=== PATIENT | male | born 1950 | race Hispanic/Latino ===

== ENCOUNTER 2019-01-05 13:30 | Emergency (ER) | payer OTHER ==
--- OUTSIDE RECORDS SUMMARY | 2019-01-05 13:33 | XMS REPORT | Clinical Summary ---
:1950 Author Organization [facility] Address [address] [place] [address] Care Team Providers Name Role Phone Lluvia Brown MD Primary Care Provider Allergies Active Allergy Reactions Severity Noted Date Comments Codeine Shortness Of Breath High 03/29/2015 Lisinopril 12/20/2015 Morphine Shortness Of Breath High 03/29/2015 Vorapaxar 12/20/2015 Medications Medication Sig Dispensed Refills Start Date End Date Status atorvastatin Take 80 mg by mouth 0 Active (LIPITOR) 80 MG daily At bedtime . tablet cholecalciferol, Take 50,000 Units by 0 Active vitamin D3, 50,000 mouth once a week unit Tab Every Saturday . prasugrel (EFFIENT) Take 1 tablet (10 mg 30 tablet 6 03/31/2015 Active 10 mg Tab tablet total) by mouth daily. ranolazine (RANEXA) Take 500 mg by mouth 0 Active 500 MG 12 hr tablet 2 (two) times daily. insulin glargine Inject 9 Units 0 Active (LANTUS) 100 subcutaneously 2 unit/mL injection (two) times daily Use as directed . insulin aspart Inject 50 Units 0 Active protamine-insulin subcutaneously every aspart (NOVOLOG MIX morning. 70/30) 100 unit/mL (70-30) injection isosorbide Take 60 mg by mouth 2 0 Active mononitrate (IMDUR) (two) times daily . 30 MG 24 hr tablet sitaGLIPtin Take 50 mg by mouth 2 0 Active (JANUVIA) 100 MG (two) times daily. tablet losartan (COZAAR) Take 25 mg by mouth 0 Active 25 MG tablet daily. gabapentin Take 600 mg by mouth 0 Active (NEURONTIN) 600 MG 3 (three) times tablet daily. Active Problems Problem Noted Date CAD (coronary artery disease) 06/03/2015 Chest pain 03/29/2015 Family History Medical History Relation Name Comments Stroke Father Cancer Mother Relation Name Status Comments Father Mother Social History Tobacco Use Types Packs/Day Years Used Date Former Smoker Smokeless Tobacco: Never Used Comments: 30 years ago Alcohol Use Drinks/Week oz/Week Comments Yes 1 Cans of beer 0.6 Once every three months Sex Assigned at Date Recorded Not on file Job Start Date Occupation Industry Not on file Not on file Not on file Travel History Travel Start Travel End No recent travel history available. Last Filed Vital Signs Not on file Plan of Treatment Not on file Results Not on fileafter 01/04/2018 Insurance Payer Benefit Plan / Group Subscriber ID Type Phone Address [facility] xxxxxxxxx Advance Directives For more information, please contact:[address] [phone] Code Status Date Activated Date Inactivated Comments Full Code 03/29/2015 10:13 PM 03/31/2015 4:17 PM This code status was determined by: Patient
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
--- OUTSIDE RECORDS SUMMARY | 2019-01-05 13:36 | XMS REPORT | Continuity of Care Document ---
:1950 Author Organization Interface Problems Problem Status Onset Classification Date Comments Source Date Reported LIBIDO, DECREASED Active 01/13/20 Condition 10/01/2014 [facility] MICROALBUMINURIA Active 07/11/20 Condition 10/01/2014 [facility] HYPERLIPIDEMIA Active 05/17/20 Condition 10/01/2014 [facility] ESSENTIAL Inactive 05/17/20 Condition 10/01/2014 HYPERTENSION, 10 Medical BENIGN Group UNSPECIFIED VITAMIN Active 05/17/20 Condition 10/01/2014 D DEFICIENCY 10 [facility] FATIGUE Active 05/17/20 Condition 10/01/2014 [facility] VITAMIN B12 Inactive 05/17/20 Condition 10/01/2014 [facility] DEFICIENCY 10 [facility] DIABETES - TYPE II Active Condition 10/01/2014 [facility] - UNCONTROLLED [facility] Group Medications Medication Details Route Status Patient Ordering Order Source Instructions Provider Date DIFLUCAN 150 MG Take 1 No Longer [facility] TABS tablet P.O. Active 014 [facility] JARDIANCE 10 MG Take 1 No Longer [facility] TABS tablet Active 014 Medical daily with Group breakfast. [place] [address] UN[place] CAPS capsule 014 Medical once weekly Group [place] Take [place] [address] UN[place] CAPS capsule x 3 014 Medical weeks out Group of the month VYTORIN 10-40 MG Take 1 Active [facility] TABS tablet 013 Medical daily. Group VITAMIN(D3) 4000 No Longer [facility] UNITS DAILY Active 013 Medical Group NOVOLOG MIX 70/30 56 -60 Active MH FLEXPEN 70-30 % units am 013 Medical SUSP before Group breakfast and 56 units pm before dinner VYTORIN 10-40 MG Take 1 Active [facility] TABS tablet 013 Medical daily. Group VYTORIN 10-40 MG Take 1 Active [facility] TABS tablet 013 Medical daily. Group FREESTYLE LANCETS uses 2 Active MH MISC daily 013 [facility] Group JANUMET 50-1000 Take 1 Active MH MG TABS tablet 013 Medical twice daily Group with breakfast and dinner BP MED Active 012 Medical Group ERGOCALCIFEROL Take 1 No Longer 65197 UNIT CAPS capsule Active 012 Medical once weekly Group x 3 weeks out of the month.90 DAY SUPPLY [place]OCALCIFER[place] Take 1 [place] [address] UNIT CAPS capsule Active 012 Medical once weekly Group x 3 weeks out of the month.90 DAY SUPPLY LISINOPRIL 2.5 MG take 1 No Longer [facility] TABS tablet Active 011 Medical daily Group LISINOPRIL 2.5 MG take 1 No Longer [facility] TABS tablet Active 011 Medical daily Group FREESTYLE LITE Tests 2 Active TEST STRP times daily 011 Medical Group ONETOUCH TEST tests 3 Inactive [facility] STRP times daily 011 [facility] Group ONETOUCH LANCETS tests 3 Inactive [facility] MISC times daily 011 [facility] Group BD PEN NEEDLE tAKES Active SHORT U/F 31G X 8 INSULIN 011 Medical MM MISC TWICE DAILY Group Allergies, Adverse Reactions, Alerts Substance Category Reaction Severity Reaction Status Date Comments Source type Reported PENICILLIN Drug PENICILLIN allergy 4 [facility] NARCOTIC? Drug NARCOTIC? allergy 4 [facility] Immunizations Immunization Date Given Site Status Last Updated Comments Source influenza 02/22/2013 completed Medical immunization (Flu Group Vax) has been administered influenza 08/04/2012 completed Medical immunization (Flu Group Vax) has been administered Results Order Name Results Value Reference Date Interpretation Comments Source Range Chemistry HGBA1C 9.9 % - 5.6 2014 [facility] Chemistry CHOLESTEROL 193 - 199 mg/dl 2014 [facility] Chemistry TRIGLYCERIDE 174 - 149 mg/dl 2014 [facility] Chemistry HDL 49 >=61 mg/dl 2014 [facility] Chemistry LDL 109 - 99 mg/dl 2014 [facility] Chemistry SODIUM 137 135 - 145 MEQ/L 2014 Medical mmol/L Group Chemistry POTASSIUM 4.0 3.5 - 5.1 MEQ/L 2014 Medical mmol/L Group Chemistry CREATININE 0.9 0.5 - 1.4 mg/dL 2014 [facility] Chemistry BUN 16 7 - 22 mg/dL 2014 [facility] Chemistry BUN/CREAT 18 6 - 25 2014 [facility] Chemistry ALBUMIN 3.8 3.5 - 5.0 g/dL 2014 [facility] Chemistry CALCIUM 8.6 8.5 - 10.5 mg/dL 2014 [facility] Chemistry SGPT (ALT) 34 U/L 0 - 65 2014 [facility] Chemistry SGOT (AST) 37 U/L 0 - 37 2014 [facility] Chemistry ALK PHOS 66 U/L 39 - 136 2014 [facility] Chemistry HGBA1C 9.6 % - 5.6 2013 [facility] Chemistry CHOLESTEROL 204 - 199 mg/dl 2013 [facility] Chemistry TRIGLYCERIDE 180 - 149 mg/dl 2013 [facility] Chemistry HDL 45 >=61 mg/dl 2013 [facility] Chemistry LDL 123 - 99 mg/dl 2013 [facility] Chemistry SODIUM 137 135 - 145 MEQ/L 2013 Medical mmol/L Group Chemistry POTASSIUM 4.8 3.5 - 5.1 MEQ/L 2013 Medical mmol/L Group Chemistry CREATININE 0.9 0.5 - 1.4 mg/dL 2013 [facility] Chemistry BUN 16 7 - 22 mg/dL 2013 [facility] Chemistry BUN/CREAT 18 6 - 25 2013 [facility] Chemistry ALBUMIN 4.0 3.5 - 5.0 g/dL 2013 [facility] Chemistry CALCIUM 9.2 8.5 - 10.5 mg/dL 2013 [facility] Chemistry SGPT (ALT) 35 U/L 0 - 65 2013 [facility] Chemistry SGOT (AST) 33 U/L 0 - 37 2013 [facility] Chemistry ALK PHOS 74 U/L 39 - 136 2013 [facility] Chemistry HGBA1C 9.8 % - 5.6 2013 [facility] Chemistry CHOLESTEROL 230 - 199 mg/dl 2013 [facility] Chemistry TRIGLYCERIDE 216 - 149 mg/dl 2013 [facility] Chemistry HDL 51 >=61 mg/dl 2013 [facility] Chemistry LDL 136 - 99 mg/dl 2013 [facility] Chemistry SODIUM 137 135 - 145 MEQ/L 2013 Medical mmol/L Group Chemistry POTASSIUM 4.4 3.5 - 5.1 MEQ/L 2013 Medical mmol/L Group Chemistry CREATININE 1.0 0.5 - 1.4 mg/dL 2013 [facility] Chemistry BUN 24 7 - 22 mg/dL 2013 [facility] Chemistry BUN/CREAT 24 6 - 25 2013 [facility] Chemistry ALBUMIN 4.6 3.5 - 5.0 g/dL 2013 [facility] Chemistry CALCIUM 10.1 8.5 - 10.5 mg/dL 2013 [facility] Chemistry SGPT (ALT) 32 U/L 0 - 65 2013 [facility] Chemistry SGOT (AST) 33 U/L 0 - 37 2013 [facility] Chemistry ALK PHOS 93 U/L 39 - 136 2013 [facility] Chemistry FSH 38517 miu/l 2013 [facility] Chemistry LH 5.74 mIU/mL 2013 [facility] Chemistry TSH 1.390 0.360 - uIU/mL 3.740 2013 [facility] Chemistry TESTO, TOTAL 625 250 - 1100 ng/dL 2013 [facility] Chemistry TESTO, FREE 73.8 35.0 - pg/mL 155.0 2013 [facility] Hematology HGB 16.2 14.0 - 18.0 g/dL 2013 [facility] Hematology HCT 47.8 % 42.0 - 54.0 2013 [facility] Hematology PLATELETS 173 133 - 450 K/CMM 2013 Medical /mm3 Group Chemistry HGBA1C 9.3 % - 5.6 2013 [facility] Chemistry CHOLESTEROL 210 - 199 mg/dl 2013 [facility] Chemistry TRIGLYCERIDE 142 - 149 mg/dl 2013 [facility] Chemistry HDL 46 >=61 mg/dl 2013 [facility] Chemistry LDL 136 - 99 mg/dl 2013 [facility] Chemistry SODIUM 139 135 - 145 MEQ/L 2013 Medical mmol/L Group Chemistry POTASSIUM 4.3 3.5 - 5.1 MEQ/L 2013 Medical mmol/L Group Chemistry CREATININE 0.9 0.5 - 1.4 mg/dL 2013 [facility] Chemistry BUN 17 7 - 22 mg/dL 2013 [facility] Chemistry BUN/CREAT 19 6 - 25 2013 [facility] Chemistry ALBUMIN 4.2 3.5 - 5.0 g/dL 2013 [facility] Chemistry CALCIUM 9.2 8.5 - 10.5 mg/dL 2013 [facility] Chemistry SGPT (ALT) 36 U/L 0 - 65 2013 [facility] Chemistry SGOT (AST) 33 U/L 0 - 37 2013 [facility] Chemistry ALK PHOS 74 U/L 39 - 136 2013 [facility] Chemistry HGBA1C 7.9 % - 5.6 2012 [facility] Chemistry CHOLESTEROL 181 - 199 mg/dl 2012 [facility] Chemistry TRIGLYCERIDE 133 - 149 mg/dl 2012 [facility] Chemistry HDL 43 >=61 mg/dl 2012 [facility] Chemistry LDL 111 - 99 mg/dl 2012 [facility] Chemistry SODIUM 142 135 - 145 MEQ/L 2012 Medical mmol/L Group Chemistry POTASSIUM 4.2 3.5 - 5.1 MEQ/L 2012 Medical mmol/L Group Chemistry CREATININE 0.9 0.5 - 1.4 mg/dL 2012 [facility] Chemistry BUN 13 7 - 22 mg/dL 2012 [facility] Chemistry BUN/CREAT 14 6 - 25 2012 [facility] Chemistry ALBUMIN 4.2 3.5 - 5.0 g/dL 2012 [facility] Chemistry CALCIUM 9.2 8.5 - 10.5 mg/dL 2012 [facility] Chemistry SGPT (ALT) 38 U/L 0 - 65 2012 [facility] Chemistry SGOT (AST) 38 U/L 0 - 37 2012 [facility] Chemistry ALK PHOS 79 U/L 39 - 136 2012 [facility] Chemistry HGBA1C 8.0 % - 5.6 2012 [facility] Chemistry CHOLESTEROL 187 - 199 mg/dl 2012 [facility] Chemistry TRIGLYCERIDE 168 - 149 mg/dl 2012 [facility] Chemistry HDL 44 >=61 mg/dl 2012 [facility] Chemistry LDL 109 - 99 mg/dl 2012 [facility] Chemistry SODIUM 139 135 - 145 MEQ/L 2012 Medical mmol/L Group Chemistry POTASSIUM 4.1 3.5 - 5.1 MEQ/L 2012 Medical mmol/L Group Chemistry CREATININE 0.9 0.5 - 1.4 mg/dL 2012 [facility] Chemistry BUN 11 7 - 22 mg/dL 2012 [facility] Chemistry BUN/CREAT 12 6 - 25 2012 [facility] Chemistry ALBUMIN 4.1 3.5 - 5.0 g/dL 2012 [facility] Chemistry CALCIUM 9.3 8.5 - 10.5 mg/dL 2012 [facility] Chemistry SGPT (ALT) 38 U/L 0 - 65 2012 [facility] Chemistry SGOT (AST) 38 U/L 0 - 37 2012 [facility] Chemistry ALK PHOS 66 U/L 39 - 136 2012 [facility] Chemistry TSH 1.010 0.360 - uIU/mL 3.740 2012 [facility] Chemistry HGBA1C 8.9 % 2012 [facility] Chemistry CHOLESTEROL 176 120 - 200 mg/dl 2012 [facility] Chemistry TRIGLYCERIDE 157 0 - 200 mg/dl 2012 [facility] Chemistry HDL 41 >=35 mg/dl 2012 [facility] Chemistry LDL 104 0 - 129 mg/dl 2012 [facility] Chemistry SODIUM 136 135 - 145 MEQ/L 2012 Medical mmol/L Group Chemistry POTASSIUM 4.3 3.5 - 5.1 MEQ/L 2012 Medical mmol/L Group Chemistry CREATININE 0.8 0.5 - 1.4 mg/dL 2012 [facility] Chemistry BUN 15 7 - 22 mg/dL 2012 [facility] Chemistry BUN/CREAT 19 6 - 25 2012 [facility] Chemistry ALBUMIN 4.1 3.5 - 5.0 g/dL 2012 [facility] Chemistry CALCIUM 8.8 8.5 - 10.5 mg/dL 2012 [facility] Chemistry SGPT (ALT) 35 U/L 0 - 65 2012 [facility] Chemistry SGOT (AST) 32 U/L 0 - 37 2012 [facility] Chemistry ALK PHOS 77 U/L 39 - 136 2012 [facility] Chemistry TSH 1.490 0.360 - uIU/mL 3.740 2012 [facility] Chemistry HGBA1C 8.9 % 2011 [facility] Chemistry CHOLESTEROL 176 120 - 200 mg/dl 2011 [facility] Chemistry TRIGLYCERIDE 143 0 - 200 mg/dl 2011 [facility] Chemistry HDL 44 >=35 mg/dl 2011 [facility] Chemistry LDL 103 0 - 129 mg/dl 2011 [facility] Chemistry SODIUM 134 135 - 145 MEQ/L 2011 Medical mmol/L Group Chemistry POTASSIUM 4.2 3.5 - 5.1 MEQ/L 2011 Medical mmol/L Group Chemistry CREATININE 0.8 0.5 - 1.4 mg/dL 2011 [facility] Chemistry BUN 15 7 - 22 mg/dL 2011 [facility] Chemistry BUN/CREAT 19 6 - 25 2011 [facility] Chemistry ALBUMIN 4.3 3.5 - 5.0 g/dL 2011 [facility] Chemistry CALCIUM 8.9 8.5 - 10.5 mg/dL 2011 [facility] Chemistry SGPT (ALT) 39 U/L 0 - 65 2011 [facility] Chemistry SGOT (AST) 42 U/L 0 - 37 2011 [facility] Chemistry ALK PHOS 69 U/L 39 - 136 2011 [facility] Chemistry HGBA1C 8.1 % 2011 [facility] Chemistry CHOLESTEROL 180 120 - 200 mg/dl 2011 [facility] Chemistry TRIGLYCERIDE 126 0 - 200 mg/dl 2011 [facility] Chemistry HDL 49 >=35 mg/dl 2011 [facility] Chemistry LDL 106 0 - 129 mg/dl 2011 [facility] Chemistry SODIUM 138 135 - 145 MEQ/L 2011 Medical mmol/L Group Chemistry POTASSIUM 4.3 3.5 - 5.1 MEQ/L 2011 Medical mmol/L Group Chemistry BUN 12 7 - 22 mg/dL 2011 [facility] Chemistry CREATININE 0.9 0.5 - 1.4 mg/dL 2011 [facility] Chemistry BUN/CREAT 13 6 - 25 2011 [facility] Chemistry ALBUMIN 4.0 3.5 - 5.0 g/dL 2011 [facility] Chemistry CALCIUM 9.2 8.5 - 10.5 mg/dL 2011 [facility] Chemistry SGOT (AST) 35 U/L 0 - 37 2011 [facility] Chemistry SGPT (ALT) 37 U/L 0 - 65 2011 [facility] Chemistry ALK PHOS 69 U/L 39 - 136 2011 [facility] Hematology HGB 14.9 12.0 - 16.0 g/dL 2011 [facility] Hematology HCT 43.5 % 36.0 - 48.0 2011 [facility] Hematology PLATELETS 151 133 - 450 K/CMM 2011 Medical /mm3 Group Chemistry HGBA1C 7.6 % 2011 [facility] Chemistry CHOLESTEROL 186 120 - 200 mg/dl 2011 [facility] Chemistry TRIGLYCERIDE 127 0 - 200 mg/dl 2011 [facility] Chemistry HDL 46 >=35 mg/dl 2011 [facility] Chemistry LDL 115 0 - 129 mg/dl 2011 [facility] Chemistry SODIUM 140 135 - 145 MEQ/L 2011 Medical mmol/L Group Chemistry POTASSIUM 3.9 3.5 - 5.1 MEQ/L 2011 Medical mmol/L Group Chemistry BUN 11 7 - 22 mg/dL 2011 [facility] Chemistry CREATININE 0.7 0.5 - 1.4 mg/dL 2011 [facility] Chemistry BUN/CREAT 16 6 - 25 2011 [facility] Chemistry ALBUMIN 4.0 3.5 - 5.0 g/dL 2011 [facility] Chemistry CALCIUM 9.1 8.5 - 10.5 mg/dL 2011 [facility] Chemistry SGOT (AST) 37 U/L 0 - 37 2011 [facility] Chemistry SGPT (ALT) 29 U/L 0 - 65 2011 [facility] Chemistry ALK PHOS 65 U/L 39 - 136 2011 [facility] Hematology HGB 14.2 12.0 - 16.0 g/dL 2011 [facility] Hematology HCT 42.4 % 36.0 - 48.0 2011 [facility] Hematology PLATELETS 176 133 - 450 K/CMM 2011 Medical /mm3 Group Chemistry CHOLESTEROL 182 120 - 200 mg/dl 2010 [facility] Chemistry TRIGLYCERIDE 103 0 - 200 mg/dl 2010 [facility] Chemistry HDL 47 >=35 mg/dl 2010 [facility] Chemistry LDL 114 0 - 129 mg/dl 2010 [facility] Chemistry SODIUM 140 135 - 145 MEQ/L 2010 Medical mmol/L Group Chemistry POTASSIUM 4.4 3.5 - 5.1 MEQ/L 2010 Medical mmol/L Group Chemistry BUN 11 7 - 22 mg/dL 2010 [facility] Chemistry CREATININE 0.8 0.5 - 1.4 mg/dL 2010 [facility] Chemistry BUN/CREAT 14 6 - 25 2010 [facility] Chemistry ALBUMIN 3.9 3.5 - 5.0 g/dL 2010 [facility] Chemistry CALCIUM 9.4 8.5 - 10.5 mg/dL 2010 [facility] Chemistry SGOT (AST) 27 U/L 0 - 37 2010 [facility] Chemistry SGPT (ALT) 24 U/L 0 - 65 2010 [facility] Chemistry ALK PHOS 79 U/L 39 - 136 2010 [facility] Chemistry HGBA1C 7.8 % 2010 [facility] Chemistry CHOLESTEROL 182 120 - 200 mg/dl 2010 [facility] Chemistry TRIGLYCERIDE 103 0 - 200 mg/dl 2010 [facility] Chemistry HDL 47 >=35 mg/dl 2010 [facility] Chemistry LDL 114 0 - 129 mg/dl 2010 [facility] Chemistry SODIUM 140 135 - 145 MEQ/L 2010 Medical mmol/L Group Chemistry POTASSIUM 4.4 3.5 - 5.1 MEQ/L 2010 Medical mmol/L Group Chemistry BUN 11 7 - 22 mg/dL 2010 [facility] Chemistry CREATININE 0.8 0.5 - 1.4 mg/dL 2010 [facility] Chemistry BUN/CREAT 14 6 - 25 2010 [facility] Chemistry ALBUMIN 3.9 3.5 - 5.0 g/dL 2010 [facility] Chemistry CALCIUM 9.4 8.5 - 10.5 mg/dL 2010 [facility] Chemistry SGOT (AST) 27 U/L 0 - 37 2010 [facility] Chemistry SGPT (ALT) 24 U/L 0 - 65 2010 [facility] Chemistry ALK PHOS 79 U/L 39 - 136 2010 [facility] Chemistry HGBA1C 12.5 % 2009 [facility] Chemistry CHOLESTEROL 218 120 - 200 mg/dl 2009 [facility] Chemistry TRIGLYCERIDE 140 0 - 200 mg/dl 2009 [facility] Chemistry HDL 53 >=35 mg/dl 2009 [facility] Chemistry LDL 137 0 - 129 mg/dl 2009 [facility] Chemistry T4, FREE 1.06 0.76 - 1.46 ng/dl 2009 [facility] Chemistry TSH 0.746 0.360 - uIU/mL 3.740 2009 [facility] Chemistry SODIUM 136 135 - 145 mmol/L 2009 [facility] Chemistry POTASSIUM 4.1 3.5 - 5.1 mmol/L 2009 [facility] Chemistry BUN 10 7 - 22 mg/dL 2009 [facility] Chemistry CREATININE 0.8 0.5 - 1.4 mg/dL 2009 [facility] Chemistry BUN/CREAT 13 6 - 25 2009 [facility] Chemistry ALBUMIN 3.9 3.5 - 5.0 g/dL 2009 [facility] Chemistry CALCIUM 8.5 8.5 - 10.5 mg/dL 2009 [facility] Chemistry SGOT (AST) 24 U/L 0 - 37 2009 [facility] Chemistry SGPT (ALT) 27 U/L 0 - 65 2009 [facility] Chemistry ALK PHOS 80 U/L 39 - 136 2009 [facility] Hematology HGB 15.1 12.0 - 16.0 g/dL 2009 [facility] Hematology HCT 44.3 % 36.0 - 48.0 2009 [facility] Hematology PLATELETS 161 133 - 450 K/CMM 2009 Medical /mm3 Group Urinalysis UA COLOR STRAW 2009 [facility] Group Urinalysis BACTERIA URN None NoneSeen Seen 2009 [facility] Group Vital Signs Vital Sign Value Date Comments Source Height 68 10/01/2014 [facility] Weight 195 10/01/2014 [facility] Heart Rate 64 10/01/2014 [facility] Systolic (mm Hg) 120 10/01/2014 [facility] Group Diastolic (mm Hg) 70 10/01/2014 [facility] Group Height 68 06/16/2014 [facility] Weight 197 06/16/2014 [facility] Heart Rate 64 06/16/2014 [facility] Systolic (mm Hg) 130 06/16/2014 [facility] Group Diastolic (mm Hg) 70 06/16/2014 [facility] Weight 198 03/05/2014 [facility] Heart Rate 68 03/05/2014 [facility] Systolic (mm Hg) 118 03/05/2014 [facility] Diastolic (mm Hg) 80 03/05/2014 [facility] Weight 195 10/30/2013 [facility] Group Heart Rate 84 10/30/2013 [facility] Systolic (mm Hg) 102 10/30/2013 [facility] Diastolic (mm Hg) 60 10/30/2013 [facility] Weight 193 07/08/2013 [facility] Heart Rate 80 07/08/2013 [facility] Systolic (mm Hg) 110 07/08/2013 [facility] Diastolic (mm Hg) 60 07/08/2013 [facility] Weight 190 02/25/2013 [facility] Heart Rate 62 02/25/2013 [facility] Systolic (mm Hg) 118 02/25/2013 [facility] Group Diastolic (mm Hg) 64 02/25/2013 [facility] Weight 195 11/12/2012 [facility] Systolic (mm Hg) 134 11/12/2012 [facility] Diastolic (mm Hg) 74 11/12/2012 [facility] Group Heart Rate 70 11/12/2012 [facility] Weight 196 08/04/2012 [facility] Systolic (mm Hg) 138 08/04/2012 [facility] Diastolic (mm Hg) 73 08/04/2012 [facility] Heart Rate 77 08/04/2012 [facility] Weight 196 04/01/2012 [facility] Heart Rate 81 04/01/2012 [facility] Systolic (mm Hg) 126 04/01/2012 [facility] Diastolic (mm Hg) 74 04/01/2012 [facility] Weight 192 10/31/2011 [facility] Heart Rate 78 10/31/2011 [facility] Systolic (mm Hg) 114 10/31/2011 [facility] Group Diastolic (mm Hg) 62 10/31/2011 [facility] Weight 191 07/11/2011 [facility] Heart Rate 90 07/11/2011 [facility] Systolic (mm Hg) 104 07/11/2011 [facility] Group Diastolic (mm Hg) 70 07/11/2011 [facility] Group Height 68 02/01/2011 [facility] Weight 189 02/01/2011 [facility] Group Heart Rate 81 02/01/2011 [facility] Systolic (mm Hg) 120 02/01/2011 [facility] Diastolic (mm Hg) 61 02/01/2011 [facility] Group Height 68 12/11/2010 [facility] Group Weight 180 12/11/2010 [facility] Group Heart Rate 93 12/11/2010 [facility] Group Systolic (mm Hg) 131 12/11/2010 [facility] Group Diastolic (mm Hg) 83 12/11/2010 [facility] Group Height 68 06/01/2010 [facility] Weight 181 06/01/2010 [facility] Group Heart Rate 81 06/01/2010 [facility] Group Systolic (mm Hg) 122 06/01/2010 [facility] Group Diastolic (mm Hg) 82 06/01/2010 [facility] Weight 181 05/17/2010 [facility] Group Height 68 05/17/2010 [facility] Group Systolic (mm Hg) 100 05/17/2010 [facility] Group Diastolic (mm Hg) 58 05/17/2010 [facility] Group Heart Rate 65 05/17/2010 [facility] Group Encounters Location Location Encounter Encounter Reason Attending ADM DC Status Source Details Type Number For Provider Date Date Visit [facility] [id number] Tabatha 03/05 03/05 [facility] Visit 60 MD Flo /2013 [facility] [address] Lab Report [id number] Tabatha 06/11 06/11 Yemi 90 MD Flo /2013 [facility] [address] Office [id number] Tabatha 06/16 06/16 [facility] Visit 00 MD Flo /2013 [facility] [address] Office [id number] Tabatha 10/01 10[facility]2014 [facility] [place] [id number] Procedures Procedure Code Date Perfomer Comments Source diabetic foot [id number] 10/01/2014 yes Medical check Group diabetic foot [id number] 07/08/2013 yes [facility] check Group diabetic foot [id number] 05/17/2010 yes Medical check Group diabetic eye exam 66427.1 10/24/2009 normal Medical Group
--- OUTSIDE RECORDS SUMMARY | 2019-01-05 13:36 | XMS REPORT | Continuity of Care Document ---
:1950 Author Organization [facility] Care Team Providers Name Role Phone MD Flo, Tabatha Unavailable Unavailable Insurance Providers Payer name Policy type / Policy ID Covered libertarian ID Policy Quach Coverage type [facility] (INDEMNITY) [facility] (IN[facility]MNITY CIG (INDEMNITY) Encounters Encounter Performer Location Date Office Visit Tabatha Rossi MD [facility] The Mar 05, 2014 [place] [address] Problems Problem Effective Dates Problem Status DIABETES - TYPE II - UNCONTROLLED Active HYPERLIPIDEMIA May 17, 2010 Active ESSENTIAL HYPERTENSION, BENIGN May 17, 2010 Inactive UNSPECIFIED VITAMIN D DEFICIENCY May 17, 2010 Active FATIGUE May 17, 2010 Active VITAMIN B12 DEFICIENCY May 17, 2010 Inactive 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, 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 ESSENTIAL HYPERTENSION, BENIGN Apr 01, 2012 Active LIBIDO, DECREASED January 12, 2014 Active Procedures Date Description Comments Oct 24, 2009 diabetic eye exam normal May 17, 2010 smoking status never May 17, 2010 diabetic foot check yes Nov 12, 2012 smoking status never smoker Jul 08, 2013 diabetic foot check yes Mar 05, 2014 smoking status Never smoker Medications Medication Instructions Start Date Status BD PEN NEEDLE SHORT U/F 31G X 8 tAKES INSULIN TWICE DAILY Dec 11, 2010 Active MM MISC FREESTYLE LITE TEST STRP Tests 2 times daily Feb 01, 2011 Active ONETOUCH TEST STRP tests 3 times daily Feb 01, 2011 Inactive ONETOUCH LANCETS MISC tests 3 times daily Feb 01, 2011 Inactive LISINOPRIL 2.5 MG TABS take 1 tablet daily Jul 11, 2011 Inactive BP MED Apr 01, 2012 Active FREESTYLE LANCETS MISC uses 2 daily Nov 28, 2012 Active VYTORIN 10-40 MG TABS Take 1 tablet daily. Feb 25, 2013 Active ERGOCALCIFEROL 83245 UNIT CAPS Take 1 capsule once weekly x 3 Oct 31, 2011 Inactive weeks out of the month.90 DAY SUPPLY NOVOLOG MIX 70/30 FLEXPEN 70-30 % 56 units am before breakfast Feb 25, 2013 Active SUSP and 52 units pm before dinner VITAMIN(D3) 4000 UNITS DAILY Feb 25, 2013 Inactive ERGOCALCIFEROL 23871 UNIT CAPS Take 1 capsule x 3 weeks out Nov 01, 2013 Active of the month JANUMET 50-1000 MG TABS Take 1 tablet twice daily Nov 12, 2012 Active with breakfast and dinner Immunizations Vaccine Date Status influenza immunization (Flu Vax) has been administered Feb 22, 2013 completed influenza immunization (Flu Vax) has been administered Aug 04, 2012 completed Vital Signs Date Description Test Result May 17, 2010 weight E&M WEIGHT 181 lb May 17, 2010 height E&M HEIGHT 68 in May 17, 2010 blood pressure, systolic BP SYSTOLIC 100 mm Hg May 17, 2010 blood pressure, diastolic BP DIASTOLIC 58 mm Hg May 17, 2010 pulse rate E&M PULSE RATE 65 /min Jun 01, 2010 height E&M HEIGHT 68 in Jun 01, 2010 weight E&M WEIGHT 181 lb Jun 01, 2010 pulse rate E&M PULSE RATE 81 /min Jun 01, 2010 blood pressure, systolic BP SYSTOLIC 122 mm Hg Jun 01, 2010 blood pressure, diastolic BP DIASTOLIC 82 mm Hg Dec 11, 2010 height E&M HEIGHT 68 in Dec 11, 2010 weight E&M WEIGHT 180 lb Dec 11, 2010 pulse rate E&M PULSE RATE 93 /min Dec 11, 2010 blood pressure, systolic BP SYSTOLIC 131 mm Hg Dec 11, 2010 blood pressure, diastolic BP DIASTOLIC 83 mm Hg Feb 01, 2011 height E&M HEIGHT 68 in Feb 01, 2011 weight E&M WEIGHT 189 lb Feb 01, 2011 pulse rate E&M PULSE RATE 81 /min Feb 01, 2011 blood pressure, systolic BP SYSTOLIC 120 mm Hg Feb 01, 2011 blood pressure, diastolic BP DIASTOLIC 61 mm Hg Jul 11, 2011 weight E&M WEIGHT 191 lb Jul 11, 2011 pulse rate E&M PULSE RATE 90 /min Jul 11, 2011 blood pressure, systolic BP SYSTOLIC 104 mm Hg Jul 11, 2011 blood pressure, diastolic BP DIASTOLIC 70 mm Hg Oct 31, 2011 weight E&M WEIGHT 192 lb Oct 31, 2011 pulse rate E&M PULSE RATE 78 /min Oct 31, 2011 blood pressure, systolic BP SYSTOLIC 114 mm Hg Oct 31, 2011 blood pressure, diastolic BP DIASTOLIC 62 mm Hg Apr 01, 2012 weight E&M WEIGHT 196 lb Apr 01, 2012 pulse rate E&M PULSE RATE 81 /min Apr 01, 2012 blood pressure, systolic BP SYSTOLIC 126 mm Hg Apr 01, 2012 blood pressure, diastolic BP DIASTOLIC 74 mm Hg Aug 04, 2012 weight E&M WEIGHT 196 lb Aug 04, 2012 blood pressure, systolic BP SYSTOLIC 138 mm Hg Aug 04, 2012 blood pressure, diastolic BP DIASTOLIC 73 mm Hg Aug 04, 2012 pulse rate E&M PULSE RATE 77 /min Nov 12, 2012 weight E&M WEIGHT 195 lb Nov 12, 2012 blood pressure, systolic BP SYSTOLIC 134 mm Hg Nov 12, 2012 blood pressure, diastolic BP DIASTOLIC 74 mm Hg Nov 12, 2012 pulse rate E&M PULSE RATE 70 /min Feb 25, 2013 weight E&M WEIGHT 190 lb Feb 25, 2013 pulse rate E&M PULSE RATE 62 /min Feb 25, 2013 blood pressure, systolic BP SYSTOLIC 118 mm Hg Feb 25, 2013 blood pressure, diastolic BP DIASTOLIC 64 mm Hg Jul 08, 2013 weight E&M WEIGHT 193 lb Jul 08, 2013 pulse rate E&M PULSE RATE 80 /min Jul 08, 2013 blood pressure, systolic BP SYSTOLIC 110 mm Hg Jul 08, 2013 blood pressure, diastolic BP DIASTOLIC 60 mm Hg Oct 30, 2013 weight E&M WEIGHT 195 lb Oct 30, 2013 pulse rate E&M PULSE RATE 84 /min Oct 30, 2013 blood pressure, systolic BP SYSTOLIC 102 mm Hg Oct 30, 2013 blood pressure, diastolic BP DIASTOLIC 60 mm Hg Mar 05, 2014 weight E&M WEIGHT 198 lb Mar 05, 2014 pulse rate E&M PULSE RATE 68 /min Mar 05, 2014 blood pressure, systolic BP SYSTOLIC 118 mm Hg Mar 05, 2014 blood pressure, diastolic BP DIASTOLIC 80 mm Hg Results Date Description Test Name Value Reference Interpretation Status May 17, hemoglobin, blood HGB 15.1 g/dL 12.0-16.0 2009May 17, hematocrit, blood HCT 44.3 % 36.0-48.0 2009May 17, platelet count PLATELETS 161 K/CMM 321-135 1965 /mm3 Oct 19, hemoglobin, blood HGB 14.2 g/dL 12.0-16.0 2011Oct 19, hematocrit, blood HCT 42.4 % 36.0-48.0 2011Oct 19, platelet count PLATELETS 176 K/CMM 295-478 3126 /mm3 Feb 04, hemoglobin, blood HGB 14.9 g/dL 12.0-16.0 2011Feb 04, hematocrit, blood HCT 43.5 % 36.0-48.0 2011Feb 04, platelet count PLATELETS 151 K/CMM 538-357 0761 /mm3 Feb 22, hemoglobin, blood HGB 16.2 g/dL 14.0-18.0 2013Feb 22, hematocrit, blood HCT 47.8 % 42.0-54.0 2013Feb 22, platelet count PLATELETS 173 K/CMM 795-436 9923 /mm3 May 17, urine color UA COLOR STRAW - 2009 null May 17, bacteria, urine BACTERIA URN None Seen NoneSeen- 2009 microscopy null May 24, cholesterol, serum CHOLESTEROL 182 mg/dl [phone] May 24, triglyceride, serum, TRIGLYCERIDE 103 mg/dl 0-200 2010 fasting May 24, HDL cholesterol, HDL 47 mg/dl >=35- 2010 serum Sep , LDL cholesterol, LDL 114 mg/dl 0-129 2010 serum May 24, sodium, serum SODIUM 140 MEQ/L [phone] mmol/L May 24, potassium, serum POTASSIUM 4.4 MEQ/L 3.5-5.1 2010 mmol/L May 24, urea nitrogen, blood BUN 11 mg/dL 7-22 2010May 24, creatinine, serum CREATININE 0.8 mg/dL 0.5-1.4 2010May 24, urea BUN/CREAT 14 null 6-25 2010 nitrogen/creatinine ratio, serum May 24, albumin, serum ALBUMIN 3.9 g/dL 3.5-5.0 2010May 24, calcium, serum CALCIUM 9.4 mg/dL 8.5-10.5 2010May 24, aspartate SGOT (AST) 27 U/L 0-37 2010 aminotransferase (SGOT), serum May 24, alanine SGPT (ALT) 24 U/L 0-65 2010 aminotransferase (SGPT), serum May 24, alkaline ALK PHOS 79 U/L 39-136 2010 phosphatase, serum May 17, hemoglobin A1C, HGBA1C 12.5 % - 2010 blood, as % of total hemoglobin May 17, cholesterol, serum CHOLESTEROL 218 mg/dl 120-200 High 2009May 17, triglyceride, serum, TRIGLYCERIDE 140 mg/dl 0-200 2009 fasting May 17, HDL cholesterol, HDL 53 mg/dl >=35- 2009 serum Sep 22, LDL cholesterol, LDL 137 mg/dl 0-129 High 2009 serum May 17, thyroxine, serum, T4, FREE 1.06 0.76-1.46 2010 free ng/dl May 17, thyroid stimulating TSH 0.746 0.360-3.740 2010 hormone, serum uIU/mL May 17, sodium, serum SODIUM [phone] mmol/L May 17, potassium, serum POTASSIUM 4.1 3.5-5.1 2009 mmol/L May 17, urea nitrogen, blood BUN 10 mg/dL 7-2009May 17, creatinine, serum CREATININE 0.8 mg/dL 0.5-1.4 2009May 17, urea BUN/CREAT 13 null 6-25 2009 nitrogen/creatinine ratio, serum May 17, albumin, serum ALBUMIN 3.9 g/dL 3.5-5.0 2009May 17, calcium, serum CALCIUM 8.5 mg/dL 8.5-10.5 2009May 17, aspartate SGOT (AST) 24 U/L 0-37 2009 aminotransferase (SGOT), serum May 17, alanine SGPT (ALT) 27 U/L 0-65 2009 aminotransferase (SGPT), serum May 17, alkaline ALK PHOS 80 U/L 39-136 2009 phosphatase, serum May 24, hemoglobin A1C, HGBA1C 7.8 % - 2010 blood, as % of total hemoglobin May 24, cholesterol, serum CHOLESTEROL 182 mg/dl [phone] May 24, triglyceride, serum, TRIGLYCERIDE 103 mg/dl 0-200 2010 fasting May 24, HDL cholesterol, HDL 47 mg/dl >=35- 2010 serum May 24, LDL cholesterol, LDL 114 mg/dl 0-129 2010 serum Sep , sodium, serum SODIUM 140 MEQ/L [phone] mmol/L May 24, potassium, serum POTASSIUM 4.4 MEQ/L 3.5-5.1 2010 mmol/L May 24, urea nitrogen, blood BUN 11 mg/dL -2010May 24, creatinine, serum CREATININE 0.8 mg/dL 0.5-1.4 2010May 24, urea BUN/CREAT 14 null 6-25 2010 nitrogen/creatinine ratio, serum May 24, albumin, serum ALBUMIN 3.9 g/dL 3.5-5.0 2010May 24, calcium, serum CALCIUM 9.4 mg/dL 8.5-10.5 2010May 24, aspartate SGOT (AST) 27 U/L 0-37 2010 aminotransferase (SGOT), serum May 24, alanine SGPT (ALT) 24 U/L 0-65 2010 aminotransferase (SGPT), serum May 24, alkaline ALK PHOS 79 U/L 39-136 2010 phosphatase, serum Nov 16, LDL cholesterol, LDL null Normal 2010 serum mg/dl Jul 11, HDL cholesterol, HDL null Normal 2010 serum mg/dl Jul 11, triglyceride, serum, TRIGLYCERIDE null Normal 2010 fasting mg/dl Jul 11, cholesterol, serum CHOLESTEROL null Normal 2010 mg/dl Oct 19, hemoglobin A1C, HGBA1C 7.6 % 2011 blood, as % of total hemoglobin Oct 19, cholesterol, serum CHOLESTEROL 186 mg/dl [phone] Oct 19, triglyceride, serum, TRIGLYCERIDE 127 mg/dl 0-200 2011 fasting Oct 19, HDL cholesterol, HDL 46 mg/dl >=35 2011 serum Oct 19, LDL cholesterol, LDL 115 mg/dl 0-129 2011 serum Oct 19, sodium, serum SODIUM 140 MEQ/L [phone] mmol/L Oct 19, potassium, serum POTASSIUM 3.9 MEQ/L 3.5-5.1 2011 mmol/L Oct 19, urea nitrogen, blood BUN 11 mg/dL -2011Oct 19, creatinine, serum CREATININE 0.7 mg/dL 0.5-1.4 2011Oct 19, urea BUN/CREAT 16 null -25 2011 nitrogen/creatinine ratio, serum Oct 19, albumin, serum ALBUMIN 4.0 g/dL 3.5-5.0 2011Oct 19, calcium, serum CALCIUM 9.1 mg/dL 8.5-10.5 2011Oct 19, aspartate SGOT (AST) 37 U/L 0-37 2011 aminotransferase (SGOT), serum Oct 19, alanine SGPT (ALT) 29 U/L 0-65 2011 aminotransferase (SGPT), serum Oct 19, alkaline ALK PHOS 65 U/L 39-136 2011 phosphatase, serum Oct 30, LDL cholesterol, LDL null Normal 2011 serum mg/dl Oct 30, HDL cholesterol, HDL null Normal 2011 serum mg/dl Oct 30, triglyceride, serum, TRIGLYCERIDE null Normal 2011 fasting mg/dl Oct 30, cholesterol, serum CHOLESTEROL null Normal 2011 mg/dl Feb 04, hemoglobin A1C, HGBA1C 8.1 % 2011 blood, as % of total hemoglobin Feb 04, cholesterol, serum CHOLESTEROL 180 mg/dl [phone] Feb 04, triglyceride, serum, TRIGLYCERIDE 126 mg/dl 0-200 2011 fasting Feb 04, HDL cholesterol, HDL 49 mg/dl >=35 2011 serum Feb 04, LDL cholesterol, LDL 106 mg/dl 0-129 2011Feb 04, sodium, serum SODIUM 138 MEQ/L [phone] mmol/L Feb 04, potassium, serum POTASSIUM 4.3 MEQ/L 3.5-5.1 2011 mmol/L Feb 04, urea nitrogen, blood BUN 12 mg/dL -2011Feb 04, creatinine, serum CREATININE 0.9 mg/dL 0.5-1.4 2011Feb 04, urea BUN/CREAT 13 null -2011 nitrogen/creatinine ratio, serum Feb 04, albumin, serum ALBUMIN 4.0 g/dL 3.5-5.0 2011Feb 04, calcium, serum CALCIUM 9.2 mg/dL 8.5-10.5 2011Feb 04, aspartate SGOT (AST) 35 U/L 0-37 2011 aminotransferase (SGOT), serum Feb 04, alanine SGPT (ALT) 37 U/L 0-65 2011 aminotransferase (SGPT), serum Feb 04, alkaline ALK PHOS 69 U/L 39-136 2011 phosphatase, serum Apr 01, LDL cholesterol, LDL null Normal 2011 serum mg/dl Apr 01, HDL cholesterol, HDL null Normal 2011 serum mg/dl Apr 01, triglyceride, serum, TRIGLYCERIDE null Normal 2011 fasting mg/dl Apr 01, cholesterol, serum CHOLESTEROL null Normal 2011 mg/dl Jul 29, hemoglobin A1C, HGBA1C 8.9 % 2011 blood, as % of total hemoglobin Jul 29, cholesterol, serum CHOLESTEROL 176 mg/dl [phone] Jul 29, triglyceride, serum, TRIGLYCERIDE 143 mg/dl 0-200 2011Jul 29, HDL cholesterol, HDL 44 mg/dl >=35 2011Jul 29, LDL cholesterol, LDL 103 mg/dl 0-129 2011Jul 29, sodium, serum SODIUM 134 MEQ/L 135-145 Low 2011 mmol/L Jul 29, potassium, serum POTASSIUM 4.2 MEQ/L 3.5-5.1 2011 mmol/L Jul 29, creatinine, serum CREATININE 0.8 mg/dL 0.5-1.4 2011Jul 29, urea nitrogen, blood BUN 15 mg/dL -2011Jul 29, urea BUN/CREAT 19 null -2011 nitrogen/creatinine ratio, serum Jul 29, albumin, serum ALBUMIN 4.3 g/dL 3.5-5.0 2011Jul 29, calcium, serum CALCIUM 8.9 mg/dL 8.5-10.5 2011Jul 29, alanine SGPT (ALT) 39 U/L 0-65 2011 aminotransferase (SGPT), serum Jul 29, aspartate SGOT (AST) 42 U/L 0-37 High 2011 aminotransferase (SGOT), serum Jul 29, alkaline ALK PHOS 69 U/L 39-136 2011 phosphatase, serum Aug 04, LDL cholesterol, LDL null Normal 2011 serum mg/dl Aug 04, HDL cholesterol, HDL null Normal 2011 serum mg/dl Aug 04, triglyceride, serum, TRIGLYCERIDE null Normal 2011 fasting mg/dl Aug 04, cholesterol, serum CHOLESTEROL null Normal 2011 mg/dl Nov 12, LDL cholesterol, LDL null Normal 2012 serum mg/dl Nov 12, cholesterol, serum CHOLESTEROL null Normal 2012 mg/dl Nov 12, HDL cholesterol, HDL null Normal 2012 serum mg/dl Nov 12, triglyceride, serum, TRIGLYCERIDE null Normal 2012 fasting mg/dl Nov 11, hemoglobin A1C, HGBA1C 8.9 % 2012 blood, as % of total hemoglobin Nov 11, cholesterol, serum CHOLESTEROL 176 mg/dl [phone] Nov 11, triglyceride, serum, TRIGLYCERIDE 157 mg/dl 0-200 2012 fasting Nov 11, HDL cholesterol, HDL 41 mg/dl >=35 2012 serum Nov 11, LDL cholesterol, LDL 104 mg/dl 0-129 2012 serum Nov 11, sodium, serum SODIUM 136 MEQ/L [phone] mmol/L Nov 11, potassium, serum POTASSIUM 4.3 MEQ/L 3.5-5.1 2012 mmol/L Nov 11, creatinine, serum CREATININE 0.8 mg/dL 0.5-1.4 2012Nov 11, urea nitrogen, blood BUN 15 mg/dL 7-22 2012Nov 11, urea BUN/CREAT 19 null 6-25 2012 nitrogen/creatinine ratio, serum Nov 11, albumin, serum ALBUMIN 4.1 g/dL 3.5-5.0 2012Nov 11, calcium, serum CALCIUM 8.8 mg/dL 8.5-10.5 2012Nov 11, alanine SGPT (ALT) 35 U/L 0-65 2012 aminotransferase (SGPT), serum Nov 11, aspartate SGOT (AST) 32 U/L 0-37 2012 aminotransferase (SGOT), serum Nov 11, alkaline ALK PHOS 77 U/L 39-136 2012 phosphatase, serum Nov 11, thyroid stimulating TSH 1.490 0.360-3.740 2012 hormone, serum uIU/mL Feb 19, hemoglobin A1C, HGBA1C 8.0 % <=5.6 High 2012 blood, as % of total hemoglobin Feb 19, cholesterol, serum CHOLESTEROL 187 mg/dl <=199 2012Feb 19, triglyceride, serum, TRIGLYCERIDE 168 mg/dl <=149 High 2012 fasting Feb 19, HDL cholesterol, HDL 44 mg/dl >=61 Low 2012 serum Feb 19, LDL cholesterol, LDL 109 mg/dl <=99 High 2012 serum Feb 19, sodium, serum SODIUM 139 MEQ/L [phone] mmol/L Feb 19, potassium, serum POTASSIUM 4.1 MEQ/L 3.5-5.1 2012 mmol/L Feb 19, creatinine, serum CREATININE 0.9 mg/dL 0.5-1.4 2012Feb 19, urea nitrogen, blood BUN 11 mg/dL 7-22 2012Feb 19, urea BUN/CREAT 12 null 6-25 2012 nitrogen/creatinine ratio, serum Feb 19, albumin, serum ALBUMIN 4.1 g/dL 3.5-5.0 2012Feb 19, calcium, serum CALCIUM 9.3 mg/dL 8.5-10.5 2012Feb 19, alanine SGPT (ALT) 38 U/L 0-65 2012 aminotransferase (SGPT), serum Feb 19, aspartate SGOT (AST) 38 U/L 0-37 High 2012 aminotransferase (SGOT), serum Feb 19, alkaline ALK PHOS 66 U/L 39-136 2012 phosphatase, serum Feb 19, thyroid stimulating TSH 1.010 0.360-3.740 2012 hormone, serum uIU/mL Feb 25, LDL cholesterol, LDL null Normal 2012 serum mg/dl Feb 25, HDL cholesterol, HDL null Normal 2012 serum mg/dl Feb 25, triglyceride, serum, TRIGLYCERIDE null Normal 2012 fasting mg/dl Feb 25, cholesterol, serum CHOLESTEROL null Normal 2012 mg/dl Jun 18, hemoglobin A1C, HGBA1C 7.9 % <=5.6 High 2012 blood, as % of total hemoglobin Jun 18, cholesterol, serum CHOLESTEROL 181 mg/dl <=199 2012Jun 18, triglyceride, serum, TRIGLYCERIDE 133 mg/dl <=149 2012 fasting Jun 18, HDL cholesterol, HDL 43 mg/dl >=61 Low 2012 serum Jun 18, LDL cholesterol, LDL 111 mg/dl <=99 High 2012 serum Jun 18, sodium, serum SODIUM 142 MEQ/L [phone] mmol/L Jun 18, potassium, serum POTASSIUM 4.2 MEQ/L 3.5-5.1 2012 mmol/L Jun 18, creatinine, serum CREATININE 0.9 mg/dL 0.5-1.4 2012Jun 18, urea nitrogen, blood BUN 13 mg/dL -2012Jun 18, urea BUN/CREAT 14 null 02-17 nitrogen/creatinine ratio, serum Jun 18, albumin, serum ALBUMIN 4.2 g/dL 3.5-5.0 2012Jun 18, calcium, serum CALCIUM 9.2 mg/dL 8.5-10.5 2012Jun 18, alanine SGPT (ALT) 38 U/L 0-65 2012 aminotransferase (SGPT), serum Jun 18, aspartate SGOT (AST) 38 U/L 0-37 High 2012 aminotransferase (SGOT), serum Jun 18, alkaline ALK PHOS 79 U/L 39-136 2012 phosphatase, serum Jul 08, LDL cholesterol, LDL null Normal 2012 serum mg/dl Jul 08, HDL cholesterol, HDL null Normal 2012 serum mg/dl Jul 08, triglyceride, serum, TRIGLYCERIDE null Normal 2012 fasting mg/dl Jul 08, cholesterol, serum CHOLESTEROL null Normal 2012 mg/dl Oct 30, LDL cholesterol, LDL null Normal 2013 serum mg/dl Oct 30, cholesterol, serum CHOLESTEROL null Normal 2013 mg/dl Oct 30, HDL cholesterol, HDL null Normal 2013 serum mg/dl Oct 30, triglyceride, serum, TRIGLYCERIDE null Normal 2013 fasting mg/dl Oct 29, hemoglobin A1C, HGBA1C 9.3 % <=5.6 High 2013 blood, as % of total hemoglobin Oct 29, cholesterol, serum CHOLESTEROL 210 mg/dl <=199 High 2013Oct 29, triglyceride, serum, TRIGLYCERIDE 142 mg/dl <=149 2013 fasting Oct 29, HDL cholesterol, HDL 46 mg/dl >=61 Low 2013 serum Oct 29, LDL cholesterol, LDL 136 mg/dl <=99 High 2013 serum Oct 29, sodium, serum SODIUM 139 MEQ/L [phone] mmol/L Oct 29, potassium, serum POTASSIUM 4.3 MEQ/L 3.5-5.1 2013 mmol/L Oct 29, creatinine, serum CREATININE 0.9 mg/dL 0.5-1.4 2013Oct 29, urea nitrogen, blood BUN 17 mg/dL -2013Oct 29, urea BUN/CREAT 19 null 02-17 nitrogen/creatinine ratio, serum Oct 29, albumin, serum ALBUMIN 4.2 g/dL 3.5-5.0 2013Oct 29, calcium, serum CALCIUM 9.2 mg/dL 8.5-10.5 2013Oct 29, alanine SGPT (ALT) 36 U/L 0-65 2013 aminotransferase (SGPT), serum Oct 29, aspartate SGOT (AST) 33 U/L 0-37 2013 aminotransferase (SGOT), serum Oct 29, alkaline ALK PHOS 74 U/L 39-136 2013 phosphatase, serum Feb 22, hemoglobin A1C, HGBA1C 9.8 % <=5.6 High 2013 blood, as % of total hemoglobin Feb 22, cholesterol, serum CHOLESTEROL 230 mg/dl <=199 High 2013Feb 22, triglyceride, serum, TRIGLYCERIDE 216 mg/dl <=149 High 2013 fasting Feb 22, HDL cholesterol, HDL 51 mg/dl >=61 Low 2013 serum Feb 22, LDL cholesterol, LDL 136 mg/dl <=99 High 2013 serum Feb 22, sodium, serum SODIUM 137 MEQ/L [phone] mmol/L Feb 22, potassium, serum POTASSIUM 4.4 MEQ/L 3.5-5.1 2013 mmol/L Feb 22, creatinine, serum CREATININE 1.0 mg/dL 0.5-1.4 2013Feb 22, urea nitrogen, blood BUN 24 mg/dL 7-22 High 2013Feb 22, urea BUN/CREAT 24 null 6-25 2014 nitrogen/creatinine ratio, serum Feb 22, albumin, serum ALBUMIN 4.6 g/dL 3.5-5.0 2013Feb 22, calcium, serum CALCIUM 10.1 8.5-10.5 2013 mg/dL Feb 22, alanine SGPT (ALT) 32 U/L 0-65 2013 aminotransferase (SGPT), serum Feb 22, aspartate SGOT (AST) 33 U/L 0-37 2013 aminotransferase (SGOT), serum Feb 22, alkaline ALK PHOS 93 U/L 39-136 2013 phosphatase, serum Feb 22, follicle stimulating FSH 48316 Units 2014 hormone, serum miu/l converted. See lab report for original value. Feb 22, luteinizing hormone, LH 5.74 2013 serum mIU/mL Feb 22, thyroid stimulating TSH 1.390 0.360-3.740 2014 hormone, serum uIU/mL Feb 22, testosterone, total TESTO, TOTAL 625 ng/dL 250-1100 2013Feb 22, testosterone, serum, TESTO, FREE 73.8 35.0-155.0 2013 free pg/mL Mar 05, LDL cholesterol, LDL null Normal 2013 serum mg/dl Mar 05, HDL cholesterol, HDL null Normal 2013 serum mg/dl Mar 05, triglyceride, serum, TRIGLYCERIDE null Normal 2013 fasting mg/dl Mar 05, cholesterol, serum CHOLESTEROL null Normal 2013 mg/dl
--- OUTSIDE RECORDS SUMMARY | 2019-01-05 13:37 | XMS REPORT | Continuity of Care Document ---
:1950 Author Organization [facility] Care Team Providers Name Role Phone MD Flo, Tabatha Unavailable Unavailable Insurance Providers Payer name Policy type / Policy ID Covered alliance party ID Policy Quach Coverage type [employer]IG[employer] - [facility] (INDEMNITY) [facility] (INDEMNITY [facility] (INDEMNITY CIGNA (INDEMNITY) CIGNA (INDEMNITY) Encounters Encounter Performer Location Date Office Visit Tabatha Rossi MD [facility] The Jun 16, 2014 [place] [address] Allergies, Adverse Reactions, Alerts Type Substance Reaction Status Drug allergy PENICILLIN Active Drug allergy NARCOTIC? Active Problems Problem Effective Dates Problem Status DIABETES [...] Mar 05, 2014 smoking status Never smoker Jun 16, 2014 smoking status Never smoker Medications Medication [...] tablet daily. Feb 25, 2013 Active ERGOCALCIFEROL 02895 UNIT CAPS Take 1 capsule once weekly x 3 Oct 31, 2011 Inactive weeks out of the month.90 DAY SUPPLY VITAMIN(D3) 4000 UNITS DAILY Feb 25, 2013 Inactive JANUMET 50-1000 MG TABS Take 1 tablet twice daily Nov 12, 2012 Active with breakfast and dinner JARDIANCE 10 MG TABS Take 1 tablet daily with Jun 16, 2014 Active breakfast. ERGOCALCIFEROL 60453 UNIT CAPS Take 1 capsule once weekly Nov 01, 2013 Active NOVOLOG MIX 70/30 FLEXPEN 70-30 % 56 -60 units am before Feb 25, 2013 Active SUSP breakfast and 56 units pm before dinner Immunizations Vaccine Date Status influenza immunization (Flu Vax) has been administered Feb 22, 2013 completed influenza immunization (Flu Vax) has been administered Aug 04, 2012 completed Vital Signs Date Description Test Result May 17, 2010 weight E&M - 3141-9 WEIGHT 181 lb May 17, 2010 height E&M - 8302-2 HEIGHT 68 in May 17, 2010 blood pressure, systolic - 8480-6 BP SYSTOLIC 100 mm Hg May 17, 2010 blood pressure, diastolic - 8462-4 BP DIASTOLIC 58 mm Hg May 17, 2010 pulse rate E&M - 8867-4 PULSE RATE 65 /min Jun 01, 2010 height E&M - 8302-2 HEIGHT 68 in Jun 01, 2010 weight E&M - 3141-9 WEIGHT 181 lb Jun 01, 2010 pulse rate E&M - 8867-4 PULSE RATE 81 /min Jun 01, 2010 blood pressure, systolic - 8480-6 BP SYSTOLIC 122 mm Hg Jun 01, 2010 blood pressure, diastolic - 8462-4 BP DIASTOLIC 82 mm Hg Dec 11, 2010 height E&M - 8302-2 HEIGHT 68 in Dec 11, 2010 weight E&M - 3141-9 WEIGHT 180 lb Dec 11, 2010 pulse rate E&M - 8867-4 PULSE RATE 93 /min Dec 11, 2010 blood pressure, systolic - 8480-6 BP SYSTOLIC 131 mm Hg Dec 11, 2010 blood pressure, diastolic - 8462-4 BP DIASTOLIC 83 mm Hg Feb 01, 2011 height E&M - 8302-2 HEIGHT 68 in Feb 01, 2011 weight E&M - 3141-9 WEIGHT 189 lb Feb 01, 2011 pulse rate E&M - 8867-4 PULSE RATE 81 /min Feb 01, 2011 blood pressure, systolic - 8480-6 BP SYSTOLIC 120 mm Hg Feb 01, 2011 blood pressure, diastolic - 8462-4 BP DIASTOLIC 61 mm Hg Jul 11, 2011 weight E&M - 3141-9 WEIGHT 191 lb Jul 11, 2011 pulse rate E&M - 8867-4 PULSE RATE 90 /min Jul 11, 2011 blood pressure, systolic - 8480-6 BP SYSTOLIC 104 mm Hg Jul 11, 2011 blood pressure, diastolic - 8462-4 BP DIASTOLIC 70 mm Hg Oct 31, 2011 weight E&M - 3141-9 WEIGHT 192 lb Oct 31, 2011 pulse rate E&M - 8867-4 PULSE RATE 78 /min Oct 31, 2011 blood pressure, systolic - 8480-6 BP SYSTOLIC 114 mm Hg Oct 31, 2011 blood pressure, diastolic - 8462-4 BP DIASTOLIC 62 mm Hg Apr 01, 2012 weight E&M - 3141-9 WEIGHT 196 lb Apr 01, 2012 pulse rate E&M - 8867-4 PULSE RATE 81 /min Apr 01, 2012 blood pressure, systolic - 8480-6 BP SYSTOLIC 126 mm Hg Apr 01, 2012 blood pressure, diastolic - 8462-4 BP DIASTOLIC 74 mm Hg Aug 04, 2012 weight E&M - 3141-9 WEIGHT 196 lb Aug 04, 2012 blood pressure, systolic - 8480-6 BP SYSTOLIC 138 mm Hg Aug 04, 2012 blood pressure, diastolic - 8462-4 BP DIASTOLIC 73 mm Hg Aug 04, 2012 pulse rate E&M - 8867-4 PULSE RATE 77 /min Nov 12, 2012 weight E&M - 3141-9 WEIGHT 195 lb Nov 12, 2012 blood pressure, systolic - 8480-6 BP SYSTOLIC 134 mm Hg Nov 12, 2012 blood pressure, diastolic - 8462-4 BP DIASTOLIC 74 mm Hg Nov 12, 2012 pulse rate E&M - 8867-4 PULSE RATE 70 /min Feb 25, 2013 weight E&M - 3141-9 WEIGHT 190 lb Feb 25, 2013 pulse rate E&M - 8867-4 PULSE RATE 62 /min Feb 25, 2013 blood pressure, systolic - 8480-6 BP SYSTOLIC 118 mm Hg Feb 25, 2013 blood pressure, diastolic - 8462-4 BP DIASTOLIC 64 mm Hg Jul 08, 2013 weight E&M - 3141-9 WEIGHT 193 lb Jul 08, 2013 pulse rate E&M - 8867-4 PULSE RATE 80 /min Jul 08, 2013 blood pressure, systolic - 8480-6 BP SYSTOLIC 110 mm Hg Jul 08, 2013 blood pressure, diastolic - 8462-4 BP DIASTOLIC 60 mm Hg Oct 30, 2013 weight E&M - 3141-9 WEIGHT 195 lb Oct 30, 2013 pulse rate E&M - 8867-4 PULSE RATE 84 /min Oct 30, 2013 blood pressure, systolic - 8480-6 BP SYSTOLIC 102 mm Hg Oct 30, 2013 blood pressure, diastolic - 8462-4 BP DIASTOLIC 60 mm Hg Mar 05, 2014 weight E&M - 3141-9 WEIGHT 198 lb Mar 05, 2014 pulse rate E&M - 8867-4 PULSE RATE 68 /min Mar 05, 2014 blood pressure, systolic - 8480-6 BP SYSTOLIC 118 mm Hg Mar 05, 2014 blood pressure, diastolic - 8462-4 BP DIASTOLIC 80 mm Hg Jun 16, 2014 height E&M - 8302-2 HEIGHT 68 in Jun 16, 2014 weight E&M - 3141-9 WEIGHT 197 lb Jun 16, 2014 pulse rate E&M - 8867-4 PULSE RATE 64 /min Jun 16, 2014 blood pressure, systolic - 8480-6 BP SYSTOLIC 130 mm Hg Jun 16, 2014 blood pressure, diastolic - 8462-4 BP DIASTOLIC 70 mm Hg Results Date Description Test Name Value Reference Interpretation Status May 17, hemoglobin, blood HGB 15.1 g/dL 12.0-16.0 2009May 17, hematocrit, blood HCT 44.3 % 36.0-48.0 2009May 17, platelet count PLATELETS 161 K/CMM 875-192 4019 /mm3 Oct 19, hemoglobin, blood HGB 14.2 g/dL 12.0-16.0 2011Oct 19, hematocrit, blood HCT 42.4 % 36.0-48.0 2011Oct 19, platelet count PLATELETS 176 K/CMM 887-049 5695 /mm3 Feb 04, hemoglobin, blood HGB 14.9 g/dL 12.0-16.0 2011Feb 04, hematocrit, blood HCT 43.5 % 36.0-48.0 2011Feb 04, platelet count PLATELETS 151 K/CMM 174-094 1286 /mm3 Feb 22, hemoglobin, blood HGB 16.2 g/dL 14.0-18.0 2013Feb 22, hematocrit, blood HCT 47.8 % 42.0-54.0 2013Feb 22, platelet count PLATELETS 173 K/CMM 199-159 8299 /mm3 May 17, urine color UA COLOR STRAW - 2010 null Sep 22, bacteria, urine BACTERIA URN None Seen NoneSeen- 2010 microscopy null May 24, cholesterol, serum CHOLESTEROL 182 mg/dl [phone] Sep , triglyceride, serum, TRIGLYCERIDE 103 mg/dl 0-200 2010 fasting Sep 29, HDL cholesterol, HDL 47 mg/dl >=35- 2010 serum Sep 29, LDL cholesterol, LDL 114 mg/dl 0-129 2010 serum Sep , sodium, serum SODIUM 140 MEQ/L [phone] mmol/L May 24, potassium, serum POTASSIUM 4.4 MEQ/L 3.5-5.1 2010 mmol/L May 24, urea nitrogen, blood BUN 11 mg/dL 7-2010May 24, creatinine, serum CREATININE 0.8 mg/dL 0.5-1.4 [...] PHOS 79 U/L 39-136 2010 phosphatase, serum Sep , hemoglobin A1C, HGBA1C 12.5 % - 2010 blood, as % of total hemoglobin May 17, cholesterol, serum CHOLESTEROL 218 mg/dl 120-200 High 2009May 17, triglyceride, serum, TRIGLYCERIDE 140 mg/dl 0-200 2009 fasting Sep 22, HDL cholesterol, HDL 53 mg/dl >=35- 2009 serum Sep 22, LDL cholesterol, LDL 137 mg/dl 0-129 High 2010 serum Sep , thyroxine, serum, T4, FREE 1.06 0.76-1.46 2009 free ng/dl May 17, thyroid stimulating TSH 0.746 0.360-3.740 2010 hormone, serum uIU/mL May 17, sodium, serum SODIUM [phone] 1327 mmol/L May 17, potassium, serum POTASSIUM 4.1 [...] 24 U/L 0-37 2009 aminotransferase (SGOT), serum Sep , alanine SGPT (ALT) 27 U/L 0-65 2009 aminotransferase (SGPT), serum Sep , alkaline ALK PHOS 80 U/L 39-136 2009 phosphatase, serum Sep , hemoglobin A1C, HGBA1C 7.8 % - 2010 blood, as % of total hemoglobin May 24, cholesterol, serum CHOLESTEROL 182 mg/dl [phone] May 24, triglyceride, serum, TRIGLYCERIDE 103 mg/dl 0-200 2010 fasting May 24, HDL cholesterol, HDL 47 mg/dl >=35- 2010 serum Sep , LDL cholesterol, LDL 114 mg/dl 0-129 2010 serum Sep , sodium, serum SODIUM 140 MEQ/L [phone] mmol/L May 24, potassium, serum POTASSIUM 4.4 [...] PHOS 79 U/L 39-136 2010 phosphatase, serum Jul 11, LDL cholesterol, LDL null Normal 2010 serum mg/dl Jul 11, HDL cholesterol, HDL null Normal 2010 serum mg/dl Jul 11, triglyceride, serum, TRIGLYCERIDE null Normal 2010 fasting mg/dl Jul 11, cholesterol, serum CHOLESTEROL null Normal 2010 mg/dl Oct 19, hemoglobin A1C, HGBA1C 7.6 % 2011 blood, as % of total hemoglobin Oct 19, cholesterol, serum CHOLESTEROL 186 mg/dl [phone] Oct 19, triglyceride, serum, TRIGLYCERIDE 127 mg/dl 0-200 2011 fasting Oct 19, HDL cholesterol, HDL 46 mg/dl >=35 2011 serum Oct 19, LDL cholesterol, LDL 115 mg/dl 0-129 2011 serum Oct 19, sodium, serum SODIUM 140 MEQ/L 682-491 9987 mmol/L Oct 19, potassium, serum POTASSIUM 3.9 [...] Feb 04, hemoglobin A1C, HGBA1C 8.1 % 2012 blood, as % of total hemoglobin Feb 04, cholesterol, serum CHOLESTEROL 180 mg/dl [phone] Feb 04, triglyceride, serum, TRIGLYCERIDE 126 mg/dl 0-200 2011 fasting Feb 04, HDL cholesterol, HDL 49 mg/dl >=35 2011 serum Feb 04, LDL cholesterol, LDL 106 mg/dl 0-129 2011 serum Feb 04, sodium, serum SODIUM 138 MEQ/L [phone] mmol/L Feb 04, potassium, serum POTASSIUM 4.3 MEQ/L 3.5-5.1 2011 mmol/L Feb 04, urea nitrogen, blood BUN 12 mg/dL -2011Feb 04, creatinine, serum CREATININE 0.9 mg/dL 0.5-1.4 2011Feb 04, urea BUN/CREAT 13 null 6-25 2011 nitrogen/creatinine ratio, serum Feb 04, albumin, serum [...] Jul 29, cholesterol, serum CHOLESTEROL 176 mg/dl [phone] Jul 29, triglyceride, serum, TRIGLYCERIDE 143 mg/dl 0-200 2011 fasting Jul 29, HDL cholesterol, HDL 44 mg/dl >=35 2011Jul 29, LDL cholesterol, LDL 103 mg/dl 0-129 2011 serum Jul 29, sodium, serum SODIUM 134 MEQ/L 135-145 Low 2011 mmol/L Jul 29, potassium, serum POTASSIUM 4.2 MEQ/L 3.5-5.1 2011 mmol/L Jul 29, creatinine, serum CREATININE 0.8 mg/dL 0.5-1.4 2011Jul 29, urea nitrogen, blood BUN 15 mg/dL 7-2011Jul 29, urea BUN/CREAT 19 null 6-25 2011 nitrogen/creatinine ratio, serum Jul 29, albumin, serum [...] Nov 11, cholesterol, serum CHOLESTEROL 176 mg/dl [phone] Nov 11, triglyceride, serum, TRIGLYCERIDE 157 mg/dl 0-200 2012 fasting Nov 11, HDL cholesterol, HDL 41 mg/dl >=35 2012 serum Nov 11, LDL cholesterol, LDL 104 mg/dl 0-129 2012 serum Nov 11, sodium, serum SODIUM 136 MEQ/L [phone] mmol/L Nov 11, potassium, serum POTASSIUM 4.3 [...] Feb 19, sodium, serum SODIUM 139 MEQ/L [phone] mmol/L Feb 19, potassium, serum POTASSIUM 4.1 MEQ/L 3.5-5.1 2012 mmol/L Feb 19, creatinine, serum CREATININE 0.9 mg/dL 0.5-1.4 2012Feb 19, urea nitrogen, blood BUN 11 mg/dL 7-2012Feb 19, urea BUN/CREAT 12 null -2012 nitrogen/creatinine ratio, serum Feb 19, albumin, serum [...] Jun 18, sodium, serum SODIUM 142 MEQ/L 404-980 1325 mmol/L Jun 18, potassium, serum POTASSIUM 4.2 MEQ/L 3.5-5.1 2012 mmol/L Jun 18, creatinine, serum CREATININE 0.9 mg/dL 0.5-1.4 2012Jun 18, urea nitrogen, blood BUN 13 mg/dL 7-2012Jun 18, urea BUN/CREAT 14 null -25 2012 nitrogen/creatinine ratio, serum Jun 18, albumin, serum [...] 29, triglyceride, serum, TRIGLYCERIDE 142 mg/dl <=149 2013Oct 29, HDL cholesterol, HDL 46 mg/dl >=61 Low 2013Oct 29, LDL cholesterol, LDL 136 mg/dl <=99 High 2013 serum Oct 29, sodium, serum SODIUM 139 MEQ/L [phone] mmol/L Oct 29, potassium, serum POTASSIUM 4.3 MEQ/L 3.5-5.1 2013 mmol/L Oct 29, creatinine, serum CREATININE 0.9 mg/dL 0.5-1.4 2013Oct 29, urea nitrogen, blood BUN 17 mg/dL 7-2013Oct 29, urea BUN/CREAT 19 null 6-2013 nitrogen/creatinine ratio, serum Oct 29, albumin, serum [...] Feb 22, sodium, serum SODIUM 137 MEQ/L 079-490 8536 mmol/L Feb 22, potassium, serum POTASSIUM 4.4 MEQ/L 3.5-5.1 2013 mmol/L Feb 22, creatinine, serum CREATININE 1.0 mg/dL 0.5-1.4 2013Feb 22, urea nitrogen, blood BUN 24 mg/dL 7- High 2013Feb 22, urea BUN/CREAT 24 null 02-17 nitrogen/creatinine ratio, serum Feb 22, albumin, serum ALBUMIN 4.6 g/dL 3.5-5.0 2013Feb 22, calcium, serum CALCIUM 10.1 8.5-10.5 2013 mg/dL Feb 22, alanine SGPT (ALT) 32 U/L 0-65 2013 aminotransferase (SGPT), serum Feb 22, aspartate SGOT (AST) 33 U/L 0-37 2013 aminotransferase (SGOT), serum Feb 22, alkaline ALK PHOS 93 U/L 39-136 2013 phosphatase, serum Feb 22, follicle stimulating FSH 10453 Units 2013 hormone, serum miu/l converted. See lab report for original value. Feb 22, luteinizing hormone, LH 5.74 2013 serum mIU/mL Feb 22, thyroid stimulating TSH 1.390 0.360-3.740 2013 hormone, serum uIU/mL Feb 22, testosterone, total TESTO, TOTAL 625 ng/dL 250-1100 2013Feb 22, testosterone, serum, TESTO, FREE 73.8 35.0-155.0 2013 free pg/mL Mar 05, LDL cholesterol, LDL null Normal 2013 serum mg/dl Mar 05, HDL cholesterol, HDL null Normal 2013 serum mg/dl Mar 05, triglyceride, serum, TRIGLYCERIDE null Normal 2013 fasting mg/dl Mar 05, cholesterol, serum CHOLESTEROL null Normal 2013 mg/dl Jun 11, hemoglobin A1C, HGBA1C 9.6 % <=5.6 High 2014 blood, as % of total hemoglobin Jun 11, cholesterol, serum CHOLESTEROL 204 mg/dl <=199 High 2013Jun 11, triglyceride, serum, TRIGLYCERIDE 180 mg/dl <=149 High 2013 fasting Jun 11, HDL cholesterol, HDL 45 mg/dl >=61 Low 2013 serum Jun 11, LDL cholesterol, LDL 123 mg/dl <=99 High 2013 serum Jun 11, sodium, serum SODIUM 137 MEQ/L [phone] mmol/L Jun 11, potassium, serum POTASSIUM 4.8 MEQ/L 3.5-5.1 2013 mmol/L Jun 11, creatinine, serum CREATININE 0.9 mg/dL 0.5-1.4 2013Jun 11, urea nitrogen, blood BUN 16 mg/dL -2013Jun 11, urea BUN/CREAT 18 null -2013 nitrogen/creatinine ratio, serum Jun 11, albumin, serum ALBUMIN 4.0 g/dL 3.5-5.0 2013Jun 11, calcium, serum CALCIUM 9.2 mg/dL 8.5-10.5 2013Jun 11, alanine SGPT (ALT) 35 U/L 0-65 2013 aminotransferase (SGPT), serum Jun 11, aspartate SGOT (AST) 33 U/L 0-37 2013 aminotransferase (SGOT), serum Jun 11, alkaline ALK PHOS 74 U/L 39-136 2013 phosphatase, serum Jun 16, LDL cholesterol, LDL null Normal 2013 serum mg/dl Jun 16, HDL cholesterol, HDL null Normal 2013 serum mg/dl Jun 16, triglyceride, serum, TRIGLYCERIDE null Normal 2013 fasting mg/dl Jun 16, cholesterol, serum CHOLESTEROL null Normal 2013 mg/dl
--- OUTSIDE RECORDS SUMMARY | 2019-01-05 13:38 | XMS REPORT | Continuity of Care Document ---
:1950 Author Organization [facility] Care Team Providers Name Role Phone MD Flo, Tabatha Unavailable Unavailable Insurance Providers Payer name Policy type / Policy ID Covered democrat ID Policy Quach Coverage type [facility] (INDEMN[facility]) [facility] (INDEMNITY CIG (INDEMNITY) Encounters Encounter Performer Location Date Lab Report Tabatha Rossi MD [facility] [place] Jun 11, 2014 [address] Problems Problem Effective Dates Problem [...] tablet daily. Feb 25, 2013 Active ERGOCALCIFEROL 56950 UNIT CAPS Take 1 capsule once weekly x 3 Oct 31, 2011 Inactive weeks out of the month.90 DAY SUPPLY NOVOLOG MIX 70/30 FLEXPEN 70-30 % 56 units am before breakfast Feb 25, 2013 Active SUSP and 52 units pm before dinner VITAMIN(D3) 4000 UNITS DAILY Feb 25, 2013 Inactive ERGOCALCIFEROL 02821 UNIT CAPS Take 1 capsule x 3 [...] - 8462-4 BP DIASTOLIC 80 mm Hg Results Date Description Test Name Value Reference Interpretation Status May 17, hemoglobin, blood HGB 15.1 g/dL 12.0-16.0 2009May 17, hematocrit, blood HCT 44.3 % 36.0-48.0 2009May 17, platelet count PLATELETS 161 K/CMM 783-493 8823 /mm3 Oct 19, hemoglobin, blood HGB 14.2 g/dL 12.0-16.0 2011Oct 19, hematocrit, blood HCT 42.4 % 36.0-48.0 2011Oct 19, platelet count PLATELETS 176 K/CMM 909-215 8115 /mm3 Feb 04, hemoglobin, blood HGB 14.9 g/dL 12.0-16.0 2011Feb 04, hematocrit, blood HCT 43.5 % 36.0-48.0 2011Feb 04, platelet count PLATELETS 151 K/CMM 162-049 8228 /mm3 Feb 22, hemoglobin, blood HGB 16.2 g/dL 14.0-18.0 2013Feb 22, hematocrit, blood HCT 47.8 % 42.0-54.0 2013Feb 22, platelet count PLATELETS 173 K/CMM 546-160 5990 /mm3 May 17, urine color UA COLOR STRAW - 2009 null May 17, bacteria, urine BACTERIA URN None Seen NoneSeen- 2010 microscopy null May 24, cholesterol, serum CHOLESTEROL 182 mg/dl [phone] May 24, triglyceride, serum, TRIGLYCERIDE 103 mg/dl 0-200 2010 fasting May 24, HDL cholesterol, HDL 47 mg/dl >=35- 2010 serum May 24, LDL cholesterol, LDL 114 mg/dl 0-129 2010 serum May 24, sodium, serum SODIUM 140 MEQ/L [phone] mmol/L May 24, potassium, serum POTASSIUM 4.4 MEQ/L 3.5-5.1 2010 mmol/L May 24, urea nitrogen, blood BUN 11 mg/dL -2010May 24, creatinine, serum CREATININE 0.8 mg/dL 0.5-1.4 2010May 24, urea BUN/CREAT 14 null 6-25 2010 nitrogen/creatinine ratio, serum Sep , albumin, serum ALBUMIN 3.9 g/dL 3.5-5.0 2010May 24, calcium, serum CALCIUM 9.4 mg/dL 8.5-10.5 2010May 24, aspartate SGOT (AST) 27 U/L 0-37 2010 aminotransferase (SGOT), serum Sep , alanine SGPT (ALT) 24 U/L 0-65 2010 aminotransferase (SGPT), serum Sep , alkaline ALK PHOS 79 U/L 39-136 2010 phosphatase, serum Sep , hemoglobin A1C, HGBA1C 12.5 % - 2009 blood, as % of total hemoglobin May 17, cholesterol, serum CHOLESTEROL 218 mg/dl 120-200 High 2009May 17, triglyceride, serum, TRIGLYCERIDE 140 mg/dl 0-200 2009 fasting May 17, HDL cholesterol, HDL 53 mg/dl >=35- 2009 serum May 17, LDL cholesterol, LDL 137 mg/dl 0-129 High 2009 serum Sep , thyroxine, serum, T4, FREE 1.06 0.76-1.46 2009 free ng/dl May 17, thyroid stimulating TSH 0.746 0.360-3.740 2009 hormone, serum uIU/mL May 17, sodium, serum SODIUM [phone] mmol/L May 17, potassium, serum POTASSIUM 4.1 3.5-5.1 2009 mmol/L May 17, urea nitrogen, blood BUN 10 mg/dL 7-22 2009May 17, creatinine, serum CREATININE 0.8 mg/dL 0.5-1.4 [...] May 24, cholesterol, serum CHOLESTEROL 182 mg/dl [phone] May 24, triglyceride, serum, TRIGLYCERIDE 103 mg/dl 0-200 2010 fasting May 24, HDL cholesterol, HDL 47 mg/dl >=35- 2010May 24, LDL cholesterol, LDL 114 mg/dl 0-129 2010 serum May 24, sodium, serum SODIUM 140 MEQ/L [phone] mmol/L May 24, potassium, serum POTASSIUM 4.4 [...] cholesterol, LDL null Normal 2010 serum mg/dl Jun 16, HDL cholesterol, HDL null Normal 2010 serum mg/dl Jun 16, triglyceride, serum, TRIGLYCERIDE null Normal 2010 fasting mg/dl Jun 16, cholesterol, serum CHOLESTEROL null Normal 2010 mg/dl Oct 19, hemoglobin A1C, HGBA1C 7.6 % 2011 blood, as % of total hemoglobin Oct 19, cholesterol, serum CHOLESTEROL 186 mg/dl [phone] Oct 19, triglyceride, serum, TRIGLYCERIDE 127 mg/dl 0-200 2011 fasting Oct 19, HDL cholesterol, HDL 46 mg/dl >=35 2011 serum Oct 19, LDL cholesterol, LDL 115 mg/dl 0-129 2011 serum Oct 19, sodium, serum SODIUM 140 MEQ/L 452-150 2643 mmol/L Oct 19, potassium, serum POTASSIUM 3.9 MEQ/L 3.5-5.1 2011 mmol/L Oct 19, urea nitrogen, blood BUN 11 mg/dL 7-2011Oct 19, creatinine, serum CREATININE 0.7 mg/dL 0.5-1.4 [...] Feb 04, cholesterol, serum CHOLESTEROL 180 mg/dl [phone] Feb 04, triglyceride, serum, TRIGLYCERIDE 126 mg/dl 0-200 2011 fasting Feb 04, HDL cholesterol, HDL 49 mg/dl >=35 2011 serum Feb 04, LDL cholesterol, LDL 106 mg/dl 0-129 2011 serum Feb 04, sodium, serum SODIUM 138 MEQ/L [phone] mmol/L Feb 04, potassium, serum POTASSIUM 4.3 MEQ/L 3.5-5.1 2011 mmol/L Feb 04, urea nitrogen, blood BUN 12 mg/dL 7-22 2011Feb 04, creatinine, serum CREATININE 0.9 mg/dL 0.5-1.4 2011Feb 04, urea BUN/CREAT 13 null -25 2011 nitrogen/creatinine ratio, serum Feb 04, albumin, [...] Jul 29, cholesterol, serum CHOLESTEROL 176 mg/dl [phone] Jul 29, triglyceride, serum, TRIGLYCERIDE 143 mg/dl [...] Nov 11, cholesterol, serum CHOLESTEROL 176 mg/dl [phone] Nov 11, triglyceride, serum, TRIGLYCERIDE 157 mg/dl 0-200 2012 fasting Nov 11, HDL cholesterol, HDL 41 mg/dl >=35 2012 serum Nov 11, LDL cholesterol, LDL 104 mg/dl 0-129 2012 serum Nov 11, sodium, serum SODIUM 136 MEQ/L 384-877 8448 mmol/L Nov 11, potassium, serum POTASSIUM 4.3 MEQ/L 3.5-5.1 2012 mmol/L Nov 11, creatinine, serum CREATININE 0.8 mg/dL 0.5-1.4 2012Nov 11, urea nitrogen, blood BUN 15 mg/dL 7-2012Nov 11, urea BUN/CREAT 19 null 6-2012 nitrogen/creatinine ratio, serum Nov 11, albumin, serum [...] Feb 19, sodium, serum SODIUM 139 MEQ/L [phone] mmol/L Feb 19, potassium, serum POTASSIUM 4.1 MEQ/L 3.5-5.1 2012 mmol/L Feb 19, creatinine, serum CREATININE 0.9 mg/dL 0.5-1.4 2012Feb 19, urea nitrogen, blood BUN 11 mg/dL 7-2012Feb 19, urea BUN/CREAT 12 null 6-25 2012 [...] Jun 18, sodium, serum SODIUM 142 MEQ/L [phone] mmol/L Jun 18, potassium, serum POTASSIUM 4.2 MEQ/L 3.5-5.1 2012 mmol/L Jun 18, creatinine, serum CREATININE 0.9 mg/dL 0.5-1.4 2012Jun 18, urea nitrogen, blood BUN 13 mg/dL -2012Jun 18, urea BUN/CREAT 14 null 6-25 2012 nitrogen/creatinine ratio, serum Jun 18, albumin, [...] Oct 29, sodium, serum SODIUM 139 MEQ/L [phone] mmol/L Oct 29, potassium, serum POTASSIUM 4.3 MEQ/L 3.5-5.1 2013 mmol/L Oct 29, creatinine, serum CREATININE 0.9 mg/dL 0.5-1.4 2013Oct 29, urea nitrogen, blood BUN 17 mg/dL 7-22 2013Oct 29, urea BUN/CREAT 19 null 6-25 2013 nitrogen/creatinine ratio, serum Oct 29, albumin, serum [...] HDL cholesterol, HDL 51 mg/dl >=61 Low 2014 serum Feb 22, LDL cholesterol, LDL 136 mg/dl <=99 High 2013 serum Feb 22, sodium, serum SODIUM 137 MEQ/L [phone] mmol/L Feb 22, potassium, serum POTASSIUM 4.4 MEQ/L 3.5-5.1 2013 mmol/L Feb 22, creatinine, serum CREATININE 1.0 mg/dL 0.5-1.4 2013Feb 22, urea nitrogen, blood BUN 24 mg/dL 7-22 High 2013Feb 22, urea BUN/CREAT 24 null 6-25 2013 nitrogen/creatinine ratio, serum Feb 22, albumin, serum ALBUMIN 4.6 g/dL 3.5-5.0 2013Feb 22, calcium, serum CALCIUM 10.1 8.5-10.5 2013 mg/dL Feb 22, alanine SGPT (ALT) 32 U/L 0-65 2013 aminotransferase (SGPT), serum Feb 22, aspartate SGOT (AST) 33 U/L 0-37 2013 aminotransferase (SGOT), serum Feb 22, alkaline ALK PHOS 93 U/L 39-136 2013 phosphatase, serum Feb 22, follicle stimulating FSH 96304 Units 2013 hormone, serum miu/l converted. See [...] hemoglobin A1C, HGBA1C 9.6 % <=5.6 High 2013 blood, as % of total hemoglobin Jun 11, cholesterol, serum CHOLESTEROL 204 mg/dl <=199 High 2013Jun 11, triglyceride, serum, TRIGLYCERIDE 180 mg/dl <=149 High 2013 fasting Jun 11, HDL cholesterol, HDL 45 mg/dl >=61 Low 2013 serum Jun 11, LDL cholesterol, LDL 123 mg/dl <=99 High 2013 serum Jun 11, sodium, serum SODIUM 137 MEQ/L [phone] mmol/L Jun 11, potassium, serum POTASSIUM 4.8 MEQ/L 3.5-5.1 2013 mmol/L Jun 11, creatinine, serum CREATININE 0.9 mg/dL 0.5-1.4 2013Jun 11, urea nitrogen, blood BUN 16 mg/dL 7-22 2013Jun 11, urea BUN/CREAT 18 null 6-25 2013 nitrogen/creatinine ratio, serum Jun 11, albumin, serum ALBUMIN 4.0 g/dL 3.5-5.0 2013Jun 11, calcium, serum CALCIUM 9.2 mg/dL 8.5-10.5 2013Jun 11, alanine SGPT (ALT) 35 U/L 0-65 2013 aminotransferase (SGPT), serum Jun 11, aspartate SGOT (AST) 33 U/L 0-37 2013 aminotransferase (SGOT), serum Jun 11, alkaline ALK PHOS 74 U/L 39-136 2013 phosphatase, serum
--- OUTSIDE RECORDS SUMMARY | 2019-01-05 13:38 | XMS REPORT | Continuity of Care Document ---
:1950 Author Organization [facility] Care Team Providers Name Role Phone MD Flo, Tabatha Unavailable Unavailable Insurance Providers Payer name Policy type / Policy ID Covered alliance party ID Policy Quach Coverage type CIGNA - [facility] (INDEMNITY) [facility] (INDEMNITY [facility] (INDEMNITY CIGNA (INDEMNITY) CIGNA (INDEMNITY) Encounters Encounter Performer Location Date Office Visit Tabatha Rossi MD [facility] Oct 01, 2014 [place] [address] Allergies, Adverse Reactions, Alerts Type [...] Jun 16, 2014 smoking status Never smoker Oct 01, 2014 smoking status Never smoker Oct 01, 2014 diabetic foot check yes Medications Medication Instructions Start Date Status BD [...] tablet daily. Feb 25, 2013 Active ERGOCALCIFEROL 31770 UNIT CAPS Take 1 capsule once weekly x 3 Oct 31, 2011 Inactive weeks out of the month.90 DAY SUPPLY VITAMIN(D3) 4000 UNITS DAILY Feb 25, 2013 Inactive JANUMET 50-1000 MG TABS Take 1 tablet twice daily Nov 12, 2012 Active with breakfast and dinner ERGOCALCIFEROL 42900 UNIT CAPS Take 1 capsule once weekly Nov 01, 2013 Active NOVOLOG MIX 70/30 FLEXPEN 70-30 % 56 -60 units am before Feb 25, 2013 Active SUSP breakfast and 56 units pm before dinner JARDIANCE 10 MG TABS Take 1 tablet daily with Jun 16, 2014 Inactive breakfast. DIFLUCAN 150 MG TABS Take 1 tablet P[address]O. Jul 19, 2014 Inactive Immunizations Vaccine Date Status influenza immunization (Flu [...] 8462-4 BP DIASTOLIC 70 mm Hg Oct 01, 2014 height E&M - 8302-2 HEIGHT 68 in Oct 01, 2014 weight E&M - 3141-9 WEIGHT 195 lb Oct 01, 2014 pulse rate E&M - 8867-4 PULSE RATE 64 /min Oct 01, 2014 blood pressure, systolic - 8480-6 BP SYSTOLIC 120 mm Hg Oct 01, 2014 blood pressure, diastolic - 8462-4 BP DIASTOLIC 70 mm Hg Results Date Description Test Name Value Reference Interpretation Status May 17, hemoglobin, blood HGB 15.1 g/dL 12.0-16.0 2009May 17, hematocrit, blood HCT 44.3 % 36.0-48.0 2009May 17, platelet count PLATELETS 161 K/CMM 128-832 9623 /mm3 Oct 19, hemoglobin, blood HGB 14.2 g/dL 12.0-16.0 2011Oct 19, hematocrit, blood HCT 42.4 % 36.0-48.0 2011Oct 19, platelet count PLATELETS 176 K/CMM 013-202 7730 /mm3 Feb 04, hemoglobin, blood HGB 14.9 g/dL 12.0-16.0 2011Feb 04, hematocrit, blood HCT 43.5 % 36.0-48.0 2011Feb 04, platelet count PLATELETS 151 K/CMM 769-176 8455 /mm3 Feb 22, hemoglobin, blood HGB 16.2 g/dL 14.0-18.0 2013Feb 22, hematocrit, blood HCT 47.8 % 42.0-54.0 2013Feb 22, platelet count PLATELETS 173 K/CMM 813-124 1289 /mm3 May 17, urine color UA COLOR STRAW - 2009 null May 17, bacteria, urine BACTERIA URN None Seen NoneSeen- 2009 microscopy null May 24, cholesterol, serum CHOLESTEROL 182 mg/dl [phone] May 24, triglyceride, serum, TRIGLYCERIDE 103 mg/dl 0-200 2010 fasting May 24, HDL cholesterol, HDL 47 mg/dl >=35- 2010 serum Sep , LDL cholesterol, LDL 114 mg/dl 0-129 2010 serum Sep , sodium, serum SODIUM 140 MEQ/L 050-023 3014 mmol/L May 24, potassium, serum POTASSIUM 4.4 MEQ/L 3.5-5.1 2010 mmol/L May 24, urea nitrogen, blood BUN 11 mg/dL -2010May 24, creatinine, serum CREATININE 0.8 mg/dL 0.5-1.4 2010May 24, urea BUN/CREAT 14 null -2010 nitrogen/creatinine ratio, serum May 24, albumin, serum [...] HDL 53 mg/dl >=35- 2009 serum Sep , LDL cholesterol, LDL 137 mg/dl 0-129 High 2009 serum Sep , thyroxine, serum, T4, FREE 1.06 0.76-1.46 2009 free ng/dl May 17, thyroid stimulating TSH 0.746 0.360-3.740 2009 hormone, serum uIU/mL May 17, sodium, serum SODIUM [phone] 2205 mmol/L May 17, potassium, serum POTASSIUM 4.1 [...] May 24, cholesterol, serum CHOLESTEROL 182 mg/dl [phone] May 24, triglyceride, serum, TRIGLYCERIDE 103 mg/dl 0-200 2010 fasting May 24, HDL cholesterol, HDL 47 mg/dl >=35- 2010 serum May 24, LDL cholesterol, LDL 114 mg/dl 0-129 2010 serum May 24, sodium, serum SODIUM 140 MEQ/L 271-747 8732 mmol/L May 24, potassium, serum POTASSIUM 4.4 [...] PHOS 79 U/L 39-136 2010 phosphatase, serum Jun 16, LDL cholesterol, LDL null Normal 2010 serum mg/dl Jun 16, HDL cholesterol, HDL null Normal 2010 serum mg/dl Jun 16, triglyceride, serum, TRIGLYCERIDE null Normal 2010 fasting mg/dl Jul 11, cholesterol, serum CHOLESTEROL null Normal 2010 mg/dl Oct 19, hemoglobin A1C, HGBA1C 7.6 % 2011 blood, as % of total hemoglobin Oct 19, cholesterol, serum CHOLESTEROL 186 mg/dl [phone] Oct 19, triglyceride, serum, TRIGLYCERIDE 127 mg/dl 0-200 2011 fasting Oct 19, HDL cholesterol, HDL 46 mg/dl >=35 2011 serum Oct 19, LDL cholesterol, LDL 115 mg/dl 0-129 2011 serum Oct 19, sodium, serum SODIUM 140 MEQ/L 029-878 2292 mmol/L Oct 19, potassium, serum POTASSIUM 3.9 MEQ/L 3.5-5.1 2011 mmol/L Oct 19, urea nitrogen, blood BUN 11 mg/dL -2011Oct 19, creatinine, serum CREATININE 0.7 mg/dL 0.5-1.4 2011Oct 19, urea BUN/CREAT 16 null -2011 nitrogen/creatinine ratio, serum Oct 19, albumin, serum [...] cholesterol, serum CHOLESTEROL null Normal 2011 mg/dl Jan 12, hemoglobin A1C, HGBA1C 8.1 % 2011 blood, as % of total hemoglobin Feb 04, cholesterol, serum CHOLESTEROL 180 mg/dl [phone] Feb 04, triglyceride, serum, TRIGLYCERIDE 126 mg/dl 0-200 2011 fasting Feb 04, HDL cholesterol, HDL 49 mg/dl >=35 2011Feb 04, LDL cholesterol, LDL 106 mg/dl 0-129 2011Feb 04, sodium, serum SODIUM 138 MEQ/L 899-580 7238 mmol/L Feb 04, potassium, serum POTASSIUM 4.3 [...] Jul 29, cholesterol, serum CHOLESTEROL 176 mg/dl [phone] Jul 29, triglyceride, serum, TRIGLYCERIDE 143 mg/dl [...] Nov 11, cholesterol, serum CHOLESTEROL 176 mg/dl [phone] Nov 11, triglyceride, serum, TRIGLYCERIDE 157 mg/dl 0-200 2012 fasting Nov 11, HDL cholesterol, HDL 41 mg/dl >=35 2012 serum Nov 11, LDL cholesterol, LDL 104 mg/dl 0-129 2012 serum Nov 11, sodium, serum SODIUM 136 MEQ/L 832-565 1447 mmol/L Nov 11, potassium, serum POTASSIUM 4.3 [...] Feb 19, sodium, serum SODIUM 139 MEQ/L 130-833 9615 mmol/L Feb 19, potassium, serum POTASSIUM 4.1 [...] Jun 18, sodium, serum SODIUM 142 MEQ/L 189-728 3919 mmol/L Jun 18, potassium, serum POTASSIUM 4.2 MEQ/L 3.5-5.1 2012 mmol/L Jun 18, creatinine, serum CREATININE 0.9 mg/dL 0.5-1.4 2012Jun 18, urea nitrogen, blood BUN 13 mg/dL 7-22 2012Jun 18, urea BUN/CREAT 14 null -2012 nitrogen/creatinine ratio, serum Jun 18, albumin, serum [...] Oct 29, sodium, serum SODIUM 139 MEQ/L 437-135 5921 mmol/L Oct 29, potassium, serum POTASSIUM 4.3 MEQ/L 3.5-5.1 2013 mmol/L Oct 29, creatinine, serum CREATININE 0.9 mg/dL 0.5-1.4 2013Oct 29, urea nitrogen, blood BUN 17 mg/dL -2013Oct 29, urea BUN/CREAT 19 null 6-25 2014 nitrogen/creatinine ratio, serum Oct 29, albumin, serum [...] Feb 22, sodium, serum SODIUM 137 MEQ/L [phone] mmol/L Feb 22, potassium, serum POTASSIUM 4.4 MEQ/L 3.5-5.1 2013 mmol/L Feb 22, creatinine, serum CREATININE 1.0 mg/dL 0.5-1.4 2013Feb 22, urea nitrogen, blood BUN 24 mg/dL - High 2013Feb 22, urea BUN/CREAT 24 null 6-25 2014 nitrogen/creatinine ratio, serum Feb 22, albumin, serum ALBUMIN 4.6 g/dL 3.5-5.0 2013Feb 22, calcium, serum CALCIUM 10.1 8.5-10.5 2014 mg/dL Feb 22, alanine SGPT (ALT) 32 U/L 0-65 2013 aminotransferase (SGPT), serum Feb 22, aspartate SGOT (AST) 33 U/L 0-37 2013 aminotransferase (SGOT), serum Feb 22, alkaline ALK PHOS 93 U/L 39-136 2013 phosphatase, serum Feb 22, follicle stimulating FSH 58880 Units 2014 hormone, serum miu/l converted. See [...] Jun 11, sodium, serum SODIUM 137 MEQ/L 161-149 2304 mmol/L Jun 11, potassium, serum POTASSIUM 4.8 MEQ/L 3.5-5.1 2013 mmol/L Jun 11, creatinine, serum CREATININE 0.9 mg/dL 0.5-1.4 2013Jun 11, urea nitrogen, blood BUN 16 mg/dL -2013Jun 11, urea BUN/CREAT 18 null -25 2013 nitrogen/creatinine ratio, serum Jun 11, albumin, [...] serum CHOLESTEROL null Normal 2013 mg/dl Oct 01, LDL cholesterol, LDL null Normal 2014 serum mg/dl Oct 01, cholesterol, serum CHOLESTEROL null Normal 2014 mg/dl Oct 01, HDL cholesterol, HDL null Normal 2014 serum mg/dl Oct 01, triglyceride, serum, TRIGLYCERIDE null Normal 2014 fasting mg/dl Sep 30, hemoglobin A1C, HGBA1C 9.9 % <=5.6 High 2014 blood, as % of total hemoglobin Sep 30, cholesterol, serum CHOLESTEROL 193 mg/dl <=199 2014Sep 30, triglyceride, serum, TRIGLYCERIDE 174 mg/dl <=149 High 2014 fasting Sep 30, HDL cholesterol, HDL 49 mg/dl >=61 Low 2014 serum Sep 30, LDL cholesterol, LDL 109 mg/dl <=99 High 2014 serum Sep 30, sodium, serum SODIUM 137 MEQ/L 534-632 6486 mmol/L Sep 30, potassium, serum POTASSIUM 4.0 MEQ/L 3.5-5.1 2014 mmol/L Sep 30, creatinine, serum CREATININE 0.9 mg/dL 0.5-1.4 2014Sep 30, urea nitrogen, blood BUN 16 mg/dL 7-22 2014Sep 30, urea BUN/CREAT 18 null 6-25 2014 nitrogen/creatinine ratio, serum Sep 30, albumin, serum ALBUMIN 3.8 g/dL 3.5-5.0 2014Sep 30, calcium, serum CALCIUM 8.6 mg/dL 8.5-10.5 2014Sep 30, alanine SGPT (ALT) 34 U/L 0-65 2014 aminotransferase (SGPT), serum Sep 30, aspartate SGOT (AST) 37 U/L 0-37 2014 aminotransferase (SGOT), serum Sep 30, alkaline ALK PHOS 66 U/L 39-136 2014 phosphatase, serum
[2019-01-05 14:17] LABS: Absolute Lymphocytes (CBC) 1.3 K/uL (0.7-4.9); Absolute Monocytes 0.9 K/uL (0.1-1.3); Basophils % 0.5 % (0-1.3); Eosinophils % 2.3 % (0-4.4); Hematocrit 32.4 % (39.6-49.0); Lymphocytes % 20.6 % (15.3-44.8); MPV 9.1 fL (7.6-11.3); Monocytes % 13.7 % (3.3-12.3)
[2019-01-05] MEDS ORDERED: NA CHLORIDE 0.9% 1,000 ML ONE ×2 (14:20→15:06)
[2019-01-05 14:30] LABS: Potassium 4.6 mmol/L (3.5-5.1)
--- NOTE | 2019-01-05 15:58 | EDPHYS ---
Physician Documentation [facility] Name: Dakota Ba Age: 68 yrs Sex: Male : 1950 Arrival Date: 01/05/2019 Time: 13:27 Bed 30 Private MD: ED Physician Donavon Roger HPI: 01/05 14:24 This 68 yrs old Male presents to ER via Wheelchair with complaints of High kb Blood Sugar. 14:24 The patient or guardian reports hyperglycemia, that was potentially precipitated by no kb particular event. Onset: The symptoms/episode began/occurred today. Associated signs and symptoms: Pertinent positives: fatigue. Current symptoms: In the emergency department the patient's symptoms are unchanged from the initial presentation. The patient has not experienced similar symptoms in the past. Pt reports he stopped for fuel in [place], checked his sugar while he was stopped and it was 403. States his sugar has never been that high so he came in. Reports fatigue, but no other symptoms. Historical: - Allergies: 13:29 No Known Allergies; rb1 - PMHx: 13:29 Diabetes - IDDM; rb1 - PSHx: 13:29 cardiac stents; rb1 - Immunization history:: Adult Immunizations up to date. - Social history:: Smoking status: Patient/guardian denies using tobacco. - Ebola Screening: : No symptoms or risks identified at this time. ROS: 14:24 ENT: Negative for injury, pain, and discharge, Neck: Negative for injury, pain, and kb swelling, Cardiovascular: Negative for chest pain, palpitations, and edema, Respiratory: Negative for shortness of breath, cough, wheezing, and pleuritic chest pain, Abdomen/GI: Negative for abdominal pain, nausea, vomiting, diarrhea, and constipation, : Negative for injury, bleeding, discharge, and swelling, MS/Extremity: Negative for injury and deformity, Skin: Negative for injury, rash, and discoloration, Neuro: Negative for headache, weakness, numbness, tingling, and seizure. 14:24 Constitutional: Positive for fatigue, Negative for body aches, chills, fever, malaise, poor PO intake, weight loss. Exam: 14:23 Constitutional: This is a well developed, well nourished patient who is awake, alert, kb and in no acute distress. Head/Face: Normocephalic, atraumatic. ENT: Nares patent. No nasal discharge, no septal abnormalities noted. Tympanic membranes are normal and external auditory canals are clear. Oropharynx with no redness, swelling, or masses, exudates, or evidence of obstruction, uvula midline. Mucous membranes moist. Neck: Trachea midline, no thyromegaly or masses palpated, and no cervical lymphadenopathy. Supple, full range of motion without nuchal rigidity, or vertebral point tenderness. No Meningismus. Chest/axilla: Normal chest wall appearance and motion. Nontender with no deformity. No lesions are appreciated. Cardiovascular: Regular rate and rhythm with a normal S1 and S2. No gallops, murmurs, or rubs. Normal PMI, no JVD. No pulse deficits. Respiratory: Lungs have equal breath sounds bilaterally, clear to auscultation and percussion. No rales, rhonchi or wheezes noted. No increased work of breathing, no retractions or nasal flaring. Abdomen/GI: Soft, non-tender, with normal bowel sounds. No distension or tympany. No guarding or rebound. No evidence of tenderness throughout. Skin: Warm, dry with normal turgor. Normal color with no rashes, no lesions, and no evidence of cellulitis. MS/ Extremity: Pulses equal, no cyanosis. Neurovascular intact. Full, normal range of motion. Neuro: Awake and alert, GCS 15, oriented to person, place, time, and situation. Cranial nerves II-XII grossly intact. Motor strength 5/5 in all extremities. Sensory grossly intact. Cerebellar exam normal. Normal gait. Vital Signs: 13:30 BP 106 / 64; Pulse 72; Resp 16; Temp 97.7; Pulse Ox 100% ; Weight 87.09 kg; Height 5 rb1 ft. 8 in. (172.72 cm); Pain 3/10; 14:09 BP 90 / 64; Pulse 62; Resp 17 S; Temp 98(O); Pulse Ox 97% ; ca1 14:41 BP 96 / 70; Pulse 65; Resp 17 S; Temp 98.1(O); Pulse Ox 99% on R/A; ca1 14:57 BP 122 / 76; Pulse 72; Resp 17 S; Temp 98(O); Pulse Ox 97% on R/A; ca1 15:13 BP 126 / 66; Pulse 64; Resp 17 S; Pulse Ox 98% on R/A; ca1 15:37 BP 103 / 65; Pulse 72; Resp 17 S; Pulse Ox 98% on R/A; ca1 15:55 BP 119 / 71; Pulse 70; Resp 17; Temp 98.1(O); Pulse Ox 97% on R/A; ca1 13:30 Body Mass Index 29.19 (87.09 kg, 172.72 cm) rb1 MDM: 13:38 Patient medically screened. kb 14:23 Data reviewed: vital signs, nurses notes. Data interpreted: Pulse oximetry: on room air kb is 97 %. Interpretation: normal. 15:15 Counseling: I had a detailed discussion with the patient and/or guardian regarding: the kb historical points, exam findings, and any diagnostic results supporting the discharge/admit diagnosis, lab results, the need for outpatient follow up, a family practitioner, to return to the emergency department if symptoms worsen or persist or if there are any questions or concerns that arise at home. 15:58 ED course: Pt states he is feeling better and wants to go home. . kb 01/05 13:30 Order name: glucometer results - FOR PT WITH NO ID rb1 01/05 13:47 Order name: CBC with Diff; Complete Time: 14:27 kb 01/05 13:47 Order name: Basic Metabolic Panel; Complete Time: 14:40 kb 01/05 13:47 Order name: IV Start; Complete Time: 14:05 kb Administered Medications: 14:10 Drug: NS 0.9% 1000 ml Route: IV; Rate: 1 bolus; Site: right forearm; ca1 14:49 Follow up: Response: No adverse reaction; IV Status: Completed infusion ca1 14:57 Drug: NS 0.9% 1000 ml Route: IV; Rate: 1 bolus; Site: right forearm; ca1 16:06 Follow up: Response: No adverse reaction; IV Status: Completed infusion ca1 Point of Care Testing: Blood Glucose: 13:47 Blood Glucose: 249 mg/dL; ca1 Ranges: Critical Glucose Levels:Adult <50 mg/dl or >400 mg/dl <40 mg/dl or >180 mg/dl Disposition: 01/05/19 15:58 Discharged to Home. Impression: Hyperglycemia, unspecified. - Condition is Stable. - Discharge Instructions: Hyperglycemia, [id number], Type 2 Diabetes Mellitus, Diagnosis, Adult, [id number]. - Medication Reconciliation Form, Thank You Letter, Antibiotic Education, Prescription Opioid Use form. - Follow up: Emergency Department; When: As needed; Reason: Worsening of condition. Follow up: Private Physician; When: 2 - 3 days; Reason: Recheck today's complaints, Continuance of care, Re-evaluation by your physician. Addendum: 01/07/2019 07:02 Co-signature as Attending Physician, Donavon Roger MD. r n Signatures: Dispatcher [employer] EDMS Ramya Baird, CRIMINAL JUSTICE INSTRUCTOR-C CRIMINAL JUSTICE INSTRUCTOR-Ckb Donavon Roger MD MD rn Norma Courtney, RN RN rb1 Miley Fisher RN RN ca1 Corrections: (The following items were deleted from the chart) 01/05 16:06 13:47 Urine Dipstick-Ancillary ordered. kb ca1 16:08 15:58 01/05/2019 15:58 Discharged to Home. Impression: Hyperglycemia, unspecified. ca1 Condition is Stable. Discharge Instructions: Hyperglycemia, Oexo-mc-Sjri, Type 2 Diabetes Mellitus, Diagnosis, Adult, [id number]. Forms are Medication Reconciliation Form, Thank You Letter, Antibiotic Education, Prescription Opioid Use. Follow up: Emergency Department; When: As needed; Reason: Worsening of condition. Follow up: Private Physician; When: 2 - 3 days; Reason: Recheck today's complaints, Continuance of care, Re-evaluation by your physician. kb
--- NOTE | 2019-01-05 15:58 | ER ---
Nurse's Notes [facility] Name: Dakota Ba Age: 68 yrs Sex: Male : 1950 Arrival Date: 01/05/2019 Time: 13:27 Bed 30 Private MD: Diagnosis: Hyperglycemia, unspecified Presentation: 01/05 13:28 Presenting complaint: Patient states: BS-400s, felt like he was going to fall asleep. rb1 Reports drinking lemonade and then started feeling bad. Transition of care: patient was not received from another setting of care. Onset of symptoms was January 05, 2019. Care prior to arrival: None. 13:28 Method Of Arrival: Wheelchair rb1 13:28 Acuity: VERONIKA 3 rb1 13:45 Initial Sepsis Screen: Does the patient meet any 2 criteria? No. Patient's initial ca1 sepsis screen is negative. Does the patient have a suspected source of infection? No. Patient's initial sepsis screen is negative. 13:45 Risk Assessment: Do you want to hurt yourself or someone else? Patient reports no ca1 desire to harm self or others. Historical: - Allergies: 13:29 No Known Allergies; rb1 - PMHx: 13:29 Diabetes - IDDM; rb1 - PSHx: 13:29 cardiac stents; rb1 - Immunization history:: Adult Immunizations up to date. - Social history:: Smoking status: Patient/guardian denies using tobacco. - Ebola Screening: : No symptoms or risks identified at this time. Screenin:45 Abuse screen: Denies threats or abuse. Denies injuries from another. Nutritional ca1 screening: No deficits noted. Tuberculosis screening: No symptoms or risk factors identified. Fall Risk None identified. Assessment: 13:45 General: Appears in no apparent distress. comfortable, Behavior is calm, cooperative, ca1 appropriate for age, Reports feeling sleepy. Pain: Complains of pain in face and scalp Pain currently is 7 out of 10 on a pain scale. Pain began 2 hours ago. Neuro: Level of Consciousness is awake, alert, obeys commands, Oriented to person, place, time, situation. Neuro: Reports headache. Cardiovascular: Heart tones S1 S2 present Capillary refill < 3 seconds Patient's skin is warm and dry. Respiratory: Airway is patent Respiratory effort is even, unlabored, Respiratory pattern is regular, symmetrical, Breath sounds are clear bilaterally. GI: Abdomen is round non-distended, Bowel sounds present X 4 quads. Abd is soft and non tender X 4 quads. : No deficits noted. No signs and/or symptoms were reported regarding the genitourinary system. EENT: No deficits noted. No signs and/or symptoms were reported regarding the EENT system. Derm: Skin is intact, is healthy with good turgor, Skin is pink, warm \T\ dry. Musculoskeletal: Circulation, motion, and sensation intact. Capillary refill < 3 seconds, Range of motion: intact in all extremities. 14:08 Reassessment: Notified DARIEN Bui of pt BP of 90/64. VO of NS 1L bolus. ca1 14:41 Reassessment: Patient appears in no apparent distress at this time. Patient and/or ca1 family updated on plan of care and expected duration. Pain level reassessed. Patient is alert, oriented x 3, equal unlabored respirations, skin warm/dry/pink. 14:50 Reassessment: Encourage pt to go to restroom after IV bolus. Pt went to restroom. No ca1 urine output at this time. 15:37 Reassessment: Patient appears in no apparent distress at this time. Patient is alert, ca1 oriented x 3, equal unlabored respirations, skin warm/dry/pink. Pt reports of having an urge to urinate but is not coming out. 15:54 Reassessment: Patient appears in no apparent distress at this time. Patient and/or ca1 family updated on plan of care and expected duration. Pain level reassessed. Patient is alert, oriented x 3, equal unlabored respirations, skin warm/dry/pink. Still unable to given urine specimen. Patient states feeling better. Vital Signs: 13:30 BP 106 / 64; Pulse 72; Resp 16; Temp 97.7; Pulse Ox 100% ; Weight 87.09 kg; Height 5 rb1 ft. 8 in. (172.72 cm); Pain 3/10; 14:09 BP 90 / 64; Pulse 62; Resp 17 S; Temp 98(O); Pulse Ox 97% ; ca1 14:41 BP 96 / 70; Pulse 65; Resp 17 S; Temp 98.1(O); Pulse Ox 99% on R/A; ca1 14:57 BP 122 / 76; Pulse 72; Resp 17 S; Temp 98(O); Pulse Ox 97% on R/A; ca1 15:13 BP 126 / 66; Pulse 64; Resp 17 S; Pulse Ox 98% on R/A; ca1 15:37 BP 103 / 65; Pulse 72; Resp 17 S; Pulse Ox 98% on R/A; ca1 15:55 BP 119 / 71; Pulse 70; Resp 17; Temp 98.1(O); Pulse Ox 97% on R/A; ca1 13:30 Body Mass Index 29.19 (87.09 kg, 172.72 cm) rb1 ED Course: 13:27 Patient arrived in ED. rb1 13:28 Triage completed. rb1 13:31 Arm band placed on. rb1 13:38 Ram[facility]aird [facility]C [facility]. kb 13:38 Donavon Roger MD is Attending Physician. kb 13:45 Patient has correct armband on for positive identification. Placed in gown. Bed in low ca1 position. Call light in reach. Side rails up X 1. Pulse ox on. NIBP on. Warm blanket given. 13:54 Miley Fisher, RN is Primary Nurse. ca1 14:04 Initial lab(s) drawn, by me, sent to lab. Inserted saline lock: 20 gauge in right lt1 forearm, using aseptic technique. 16:07 No provider procedures requiring assistance completed. IV discontinued, intact, ca1 bleeding controlled, No redness/swelling at site. Pressure dressing applied. Administered Medications: 14:10 Drug: NS 0.9% 1000 ml Route: IV; Rate: 1 bolus; Site: right forearm; ca1 14:49 Follow up: Response: No adverse reaction; IV Status: Completed infusion ca1 14:57 Drug: NS 0.9% 1000 ml Route: IV; Rate: 1 bolus; Site: right forearm; ca1 16:06 Follow up: Response: No adverse reaction; IV Status: Completed infusion ca1 Point of Care Testing: Blood Glucose: 13:47 Blood Glucose: 249 mg/dL; ca1 Ranges: Outcome: 15:58 Discharge ordered by . kb 16:07 Discharged to home ambulatory. ca1 16:07 Condition: stable 16:07 Discharge instructions given to patient, Instructed on discharge instructions, follow up and referral plans. Demonstrated understanding of instructions, follow-up care. 16:08 Patient left the ED. ca1 Signatures: Ramya Baird FNP-C FNP-Norma Chao, RN RN rb1 Miley Fisher RN RN ca1 Izabel, Cindy lt1 Corrections: (The following items were deleted from the chart) 14:49 14:44 Urine output 340 ml; Response: No adverse reaction; IV Status: Completed infusion ca1 ca1
== END 2019-01-05 16:08 | disposition home or self-care (01) ==
LOC: ER 13:30
DX: E11.65 Type 2 diabetes mellitus with hyperglycemia (principal)
CPT/HCPCS: 36415; 80048; 82962; 85025; 96360; 96361; 99284; J7030